=== PATIENT | male | born 1955 | race African-American/Black ===

== ENCOUNTER 2021-04-24 16:18 | Inpatient (IN) | payer MEDICARE, OTHER, SELFPAY ==
[2021-04-24] VITALS (7 sets, daily range): BP systolic 109–170; BP diastolic 71–110; PULSE 89–112; RESP 17–38; TEMP 36.2–39.4; O2SAT 96–100; BMI 18.3
--- NOTE | ~2021-04-24 | US_ITS ---
EXAMINATION: US venous doppler [facility] DATE: 04/25/2021 09:33 INDICATION: Acute pulmonary emboli. TECHNIQUE: Grayscale ultrasound images without and with compression and Doppler ultrasound images of the bilateral lower extremity veins were obtained. COMPARISON: None. FINDINGS: The visualized portions of right common femoral vein, profunda (deep) femoral vein, and greater saphe nous vein outflow are patent. There is thrombus in right femoral vein, popliteal vein, and posterior tibial, peroneal, and gastrocnemius veins. There is thrombus in left common femoral vein, profunda femoral vein, femoral vein, popliteal vein, a peroneal vein, and greater saphenous vein. IMPRESSION: 1. Bilateral acute deep vein thrombosis. Reviewed, dictated and finalized at location B. OR MACHINE PASTER
--- NOTE | ~2021-04-24 | XR_ITS ---
XR chest 1V portable DATE: 04/24/2021 16:53 INDICATION: Nonproductive cough. Possible Covid infection. History of hypertension. TECHNIQUE: Portable AP views on 04/24/2021 at 1646/1647 hours COMPARISON: None FINDINGS: Heart size is normal. Mild aortic unfolding. No hilar or mediastinal enlargement. Minimal infiltrate or atelectasis at the lung bases. The lungs otherwise appear clear. No pleural eff usion or pulmonary vascular congestion or pneumothorax. IMPRESSION: Minimal infiltrate or atelectasis at the lung bases Reviewed, dictated and finalized at location J. R ENGINEER
--- NOTE | ~2021-04-24 | CT_ITS ---
EXAMINATION: CTA brain carotid DATE: 04/25/2021 05:14 INDICATION: Left facial weakness. TECHNIQUE: Computed tomographic angiography (CTA) of the head was performed with 100 mL Omnipaque-350 intravenous contrast. CTA of the neck was performed with intravenous contrast. Automated exposure co ntrol and iterative reconstruction technique were employed. The dose-length product was 1132.47 mGy-c m. Maximum intensity projection and volume rendered 3D-reconstructions were created by the technRavello Systemsi st on a separate workstation. COMPARISON: Head CT 04/25/2021 FINDINGS: HEAD CTA: There is diffuse brain volume loss. There are old infarcts in the right basal ganglia. Ther e are scattered areas of low attenuation in the cerebral white matter. The ventricles are normal in s ize to the degree of diffuse brain volume loss. There are old blowout fractures of the medial wall an d floor of left orbit. There is complete opacification of left maxillary sinus. There is mild mucosal thickening in the ethmoid sinuses. There is a trace left mastoid effusion. Right vertebral artery is dominant. There is no significant stenosis of basilar artery or the posterior cerebral arteries. The re is moderate stenosis of intracranial right internal carotid artery. There is no significant stenos is of the anterior or middle cerebral arteries. Anterior communicating artery is normal. The posterio r communicating arteries are normal. There is no aneurysm. NECK CTA: There is mild emphysema. There are no pathologically enlarged lymph nodes. There is a signi ficant stenosis of the vertebral arteries. There is plaque in the proximal internal carotid arteries. There is 0% stenosis of the proximal right internal carotid artery relative to normal distal artery lumen diameter (NASCET criteria). There is 0% stenosis of the proximal left internal carotid artery r elative to normal distal artery lumen diameter. There is severe cervical spondylosis. IMPRESSION: 1. 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 2. Mild nonspecific cerebral white matter disease, which likely represents chronic small vessel ische lj disease. 3. Moderate stenosis of intracranial right internal carotid artery. 4. 0% stenosis of the proximal internal carotid arteries relative to normal distal artery lumen diame ters (NASCET criteria). Reviewed, dictated and finalized at location B. LBENZENE CONVERTER OPERATOR IMPRESSION: 1. 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 2. Mild nonspecific cerebral white matter disease, which likely represents bilingual social worker adrian small vessel ischemic disease. 3. Moderate stenosis of intracranial right internal carotid artery. 4. 0% stenosis of the proximal internal carotid arteries relative to normal dis rafael artery lumen diameters (NASCET criteria).
--- NOTE | ~2021-04-24 | CT_ITS ---
EXAMINATION: CTA chest PE abdomen pel DATE: 04/24/2021 18:22 INDICATION: Cough, weakness, shortness of breath TECHNIQUE: Computed tomography angiography (CTA) of the chest was performed with 100 mL Omnipaque-350 intravenous contrast timed to evaluate the pulmonary arteries. Coronal maximum intensity projection 3D-reconstructions were created by the technologist. Automated exposure control and iterative reconst ruction technique were employed. Exam dose: 499.21 mGy-cm total exam DLP. COMPARISON: 04/24/2021 portable AP chest FINDINGS: There is diagnostic contrast enhancement of the pulmonary arteries and prominent amount of thrombus within the main right pulmonary artery and saddle embolus involving right upper and lower lo be. Heart size is normal. No pericardial or pleural effusion. No thoracic aortic aneurysm or dissection i s evident. No hilar or mediastinal mass lesion or adenopathy. There is prominent discoid atelectasis and/or scarring in the lower lobes. Moderate moderate emphysem atous changes are suggested. Approximately 3.5 x 4.7 cm low-attenuation mass of the pancreatic head and uncinate process area, kebede sing suspicion of possible pancreatic carcinoma. Bilateral rib fractures. No suspicious osteolytic or osteoblastic lesions are noted. IMPRESSION: Main right pulmonary artery and right saddle pulmonary embolus involving right upper and lower lobes Prominent discoid atelectasis and/or scarring in the lower lobes and mild to moderate emphysematous s uggested 3.5 x 4.7 cm low-attenuation mass in the pancreatic head and uncinate process; pancreatic cancers are n't excluded Reviewed, dictated and finalized at Location A. Reviewed, dictated and finalized at location J. CTOR TECHNICAL IMPRESSION: Main right pulmonary artery and right saddle pulmonary embolus inv olving right upper and lower lobes Prominent discoid atelectasis and/or scarring in the lower lobes and mild to mo derate emphysematous suggested 3.5 x 4.7 cm low-attenuation mass in the pancreatic head and uncinate process; pancreatic cancers aren't excluded
--- NOTE | ~2021-04-24 | CT_ITS ---
EXAMINATION: CT brain wo con DATE: 04/25/2021 01:16 INDICATION: Left facial weakness. TECHNIQUE: Computed tomography (CT) of the head was performed without intravenous contrast. The mA wa s adjusted according to patient size. Iterative reconstruction technique was employed. The dose-lengt h product was 681.00 mGy-cm. COMPARISON: None FINDINGS: There is diffuse brain volume loss. There are old infarcts involving the right basal gangli a. There are scattered areas of low attenuation in the cerebral white matter. There is no intracrania l hemorrhage, acute infarction, or abnormal intracranial mass lesion. The ventricles are normal in si ze for the degree of brain volume loss. There are old blowout fractures of the medial wall and floor of left orbit. There is complete opacification of left maxillary sinus. There is mild mucosal thicken ing in the ethmoid sinuses. There is a trace left mastoid effusion. IMPRESSION: 1. 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 2. Mild nonspecific cerebral white matter disease, which likely represents chronic small vessel ische lj disease. Reviewed, dictated and finalized at location B. HELPER IMPRESSION: 1. 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 2. Mild nonspecific cerebral white matter disease, which likely represents bowling alley manager adrian small vessel ischemic disease.
--- NOTE | ~2021-04-24 | US_ITS ---
EXAMINATION: US abdomen limited DATE: 04/25/2021 09:33 INDICATION: Pancreatic mass. TECHNIQUE: Multiple grayscale and Doppler ultrasound images of the abdomen were obtained. COMPARISON: CT abdomen and pelvis 04/24/2021 FINDINGS: There is a 4.9 x 4.1 x 4.3 cm hypoechoic and anechoic mass without internal vascular flow i n head of the pancreas. The pancreatic duct is normal in caliber in the body of the pancreas. The CT demonstrates calcifications in the head of the pancreas. The liver is normal without focal lesion. No liver surface nodularity. The gallbladder is contracted. No gallstones. Gallbladder wall thickening is noted. There is normal flow in main portal vein. The common duct is dilated to 9 mm. There are cys ts in right kidney measuring up to 2.9 cm. IMPRESSION: 1. 4.9 cm pancreatic head mass, most likely chronic pancreatitis with walled-off necrosis. Comparison with outside imaging is recommended to exclude malignancy. Reviewed, dictated and finalized at location B. VERY TABLE OPERATOR IMPRESSION: 1. 4.9 cm pancreatic head mass, most likely chronic pancreatitis with walled-of f necrosis. Comparison with outside imaging is recommended to exclude malignanc y.
--- NOTE | 2021-04-24 16:24 | PC.NURSE ---
pt denies receiving covid vaccine
--- NOTE | 2021-04-24 16:29 | ECG_ITS ---
Measurements Intervals [place] Rate: 105 P: 65 MN: 168 QRS: 55 QRSD: 86 T: 65 QT: 404 QTc: 536 Interpretive Statements SINUS TACHYCARDIA BASELINE ARTIFACT- II, III, V3-V6 ABNORMAL ECG Electronically Signed On 04-24-2021 20:26:45 NET SORTER by Wade Blair D.O.
--- NOTE | 2021-04-24 16:37 | ED.WEAKNESS ---
HPI - Weakness General Chief complaint: Weakness Stated complaint: LETHARGY Time Seen by Provider: 04/24/21 16:20 Source: patient and EMS Mode of arrival: EMS Limitations: other (poor historian) History of Present Illness HPI Narrative: This is a 65 year old male with history of alcohol abuse, hypertension who presents from home for evaluation of weakness per EMS. Patient states he has been brought to ER because he has had productive cough for 2 weeks. He denies associated chest pain, shortness of breath, nausea, vomiting, abdominal pain or weakness. He is oriented to person and ago. Per EMS, patient was diverted from [place] because he possibly had covid. Patient admits to drinking a pint a day but he states he has not drank in at least 2 days. He is unable to state his last drink. He denies alcohol withdrawal in the past but his paperwork reports alcohol withdrawal in his diagnosis. His daughter states patient recently moved in with her. She states he has been in and out of hospital over past 3 years. He was seen for first time at [place] clinic today in 3 years. She reports he went for follow up , but the clinic called EMS. They called [facility] because they were concerned he had covid pneumonia. She states patient is at his baseline mental status. Related Data Home Medications Medication Instructions Recorded Confirmed acamprosate 333 mg PO TID 04/24/21 04/25/21 diltiazem HCl 120 mg PO DAILY 04/24/21 04/25/21 folic acid 1 mg PO DAILY 04/24/21 04/25/21 multivitamin,hb-[id number] 1 tablet PO DAILY 04/24/21 04/25/21 [Complete Multivitamin] rosuvastatin 40 mg PO QPM 04/24/21 04/25/21 spironolactone 25 mg PO DAILY 04/24/21 04/25/21 thiamine HCl (vitamin B1) 100 mg PO DAILY 04/24/21 04/25/21 tramadol 50 mg PO Q6H PRN 04/24/21 04/25/21 Allergies Allergy/AdvReac Type Severity Reaction Status Date / Time No Known Allergies Allergy Verified 04/24/21 16:20 Review of Systems Review of Systems: All systems reviewed & are unremarkable except as noted in HPI and below PMFSH Past Medical History Medical History (Updated 04/25/21 @ 01:23 by Clementine Jimneez MD) Alcohol abuse DM2 (diabetes mellitus, type 2) Hyperlipidemia Hypertension Surgical History Surgical History (Updated 04/24/21 @ 22:33 by Amelia Nicholas NP) No pertinent past surgical history Family History Family History (Updated 04/24/21 @ 22:33 by Amelia Nicholas NP) Unknown Unknown family medical history Social History Social History (Updated 04/24/21 @ 22:35 by Amelia Nicholas NP) Social History: Initially the patient told me that he quit drinking 2 weeks ago however was noted that his last drink was 2 days ago. He does have a history of alcoholism. Even though the patient served in the [employer] he stated that he does not always go to the [facility]. The patient is and has 6 children. The patient worked in transport. Patient continues to smoke half pack a cigarettes a day. It is noted that the patient typically drinks a pt of liquor a day. The patient lives with his daughter Melva who is the durable power insurance attorney for healthcare. Code status full code Alcohol intake: current Alcohol use details: pint a day Exam Const: General: no acute distress and alert Other: oriented to x 2 HENMT: Head: normocephalic and atraumatic Face and sinus: normal facial exam, sinuses nontender and face symmetric Mouth: Yes Normal oral and palatal mucosa present, Yes lip normal, Yes oropharynx normal and Yes moist mucous membranes Throat: posterior oropharynx normal, tonsils normal and uvula midline Eyes: Pupils: Equal, round and reactive pupils present EOM: EOMs intact bilaterally Chest: Chest palpation & inspection: normal inspection of the chest Resp: Effort & Inspection: normal respiratory effort and no retractions Auscultation: clear to auscultation bilaterally Cardio: Rate: regular rate Rhythm: reg
[2021-04-24 16:43] LABS: Base Excess ABG -3.2 mEq/l (+/-2.0); Carboxyhemoglobin 0.1 % THb (0-2.0); Device ROOM AIR; Fractional Inspired Oxygen 21 %; HCO3 ABG 20.5 mEq/l (22.0-26.0); Methemoglobin ABG 0.2 %THb (0-1.5); Modified Allen's Test Pass; Oxygen Content ABG 15.8 %vol (16.0-22.0); Oxygen Saturation ABG 94.8 % (95.0-100.0); Oxyhemoglobin 92.5 % THb (90.0-100.0); PCO2 ABG 32.3 mmHg (35.0-45.0); PO2 ABG 71.1 mmHg (80.0-100.0); PO2 FiO2 Ratio Arterial Blood 3.39 %; Reduced Hemoglobin 7.2 %THb (0-5.0); Site Drawn LEFT RADIAL; Total Hemoglobin 12.1 g/dL (12.0-18.0)
[2021-04-24 17:03] LABS: Basophils Percent Auto 0.2 % (0.2-1.2); Hematocrit 35.3 % (42.0-52.0); Hemoglobin 12.4 g/dL (14.0-18.0); Immature Granulocyte Absolute 0.19 K/mm3 (0.00-0.031); Immature Granulocyte Percent A 1.1 % (0-0.5); Lymphocytes Absolute Auto 0.44 K/mm3 (0.9-3.2); Lymphocytes Percent Auto 2.5 % (18.3-44.2); Mean Corpuscular HGB Conc 35.1 g/dl (32-36); Mean Corpuscular Hemoglobin 30.9 pg (26-34); Mean Platelet Volume 10.6 fl (7.4-10.4); Monocytes Absolute Auto 0.5 K/mm3 (0.1-0.6); Monocytes Percent Auto 2.7 % (2.6-8.5); Neutrophils Absolute Auto 16.6 K/mm3 (1.3-6.7); Neutrophils Percent Auto 93.5 % (45.5-73.1); Platelet Count Result 272 k/mm3 (150-375); Red Blood Count 4.01 M/mm3 (4.6-6.20); Red Cell Distribution Width 15.1 % (11.5-14.5); White Blood Count 17.7 K/mm3 (4.5-10.0)
[2021-04-24 17:13] LABS: Partial Thromboplastin Time 40.5 SECONDS (22.3-36.8)
[2021-04-24 17:16] LABS: Alanine Aminotransferase 27 U/L (4-50); Albumin Level 3.8 g/dL (3.5-5.1); Alkaline Phosphatase 129 U/L (38-126); Anion Gap 20 mmol/L (8-16); Aspartate Amino Transferase 67 U/L (17-59); Bilirubin,Total 1.1 mg/dL (0.2-1.3); Blood Urea Nitrogen 20 mg/dL (9-20); Calcium 9.4 mg/dL (8.4-10.2); Carbon Dioxide 20 mmol/L (22-30); Chloride 91 mmol/L (98-107); Estimated CRCL calculation 52 ml/min; Estimated Glomerular Filt Rate > 60; Glucose 561 mg/dL (65-110); Lactic Acid Reflex 6.3 mmol/L (0.7-2.1); Potassium 3.1 mmol/L (3.4-5.0); Sodium 131 mmol/L (137-145)
[2021-04-24 17:18] LABS: INR 1.1
[2021-04-24 17:25] LABS: Ethanol < 10 mg/dL (<10)
[2021-04-24] MEDS: SODIUM CHLORIDE 0.9% IV 1,000 ML 999 ML IV CONT ×2 (17:25→18:43)
[2021-04-24 18:28] LABS: Beta-Hydroxybutyrate/Acetoacetate 0.57 mmol/L (0.02-0.27)
[2021-04-24 18:38] LABS: SARS-CoV-2 RNA PCR Positive
[2021-04-24] MEDS: POTASSIUM CHLORIDE 20 MEQ TABLET 40 MEQ PO (18:42)
[2021-04-24 18:56] LABS: Lipase 76 U/L (23-300)
[2021-04-24 19:09] LABS: NT Pro B Type Natriuretic Pept 545 pg/mL (5-100); Troponin I < 0.012 ng/mL (0.000-0.034)
[2021-04-24] MEDS: POTASSIUM CHLORIDE INJ 40 MEQ in SODIUM CHLORIDE 0.9% IV 500 ML 130 MEQ IVPB (19:56)
[2021-04-24 20:01] LABS: Reflex Lactic Acid Yes or No Add Lactic
[2021-04-24 20:02] LABS: Glucose Point of Care 463 mg/dl (65-105)
--- NOTE | 2021-04-24 20:02 | PC.NURSE ---
pt informed that urine specimen is needed or a straight cath will need to be performed
[2021-04-24 20:16] LABS: Ammonia < 9 umol/L (9-30)
--- NOTE | 2021-04-24 20:21 | PM.IMHP ---
H&P: HPI History of Present Illness Date/Time: 04/24/21 20:21 this is a 65-year-old male patient who has a history of alcohol abuse, and hypertension. The patient lives with his daughter. Although he is the [facility] he typically does not go to the [place] and typically goes to [facility]. The patient was brought to [place] ER as the patient had been suspected to have COVID. The [facility] stated that they did not have any isolation beds for possible COVID patient therefore the patient was diverted to [facility] instead of [facility]. The patient has been coughing for 2 weeks. He denies any COVID vaccines. The patient has a history of alcoholism drinking up to a pt of whiskey a day but stated that he has not drink in 2 days. Patient's white count is 17.7. H&H is 12.4 and 35.3. Patient's ABGs pH is 7.420. CO2 32.3. PO2 71.1. Patient was started on oxygen at 2 L per nasal cannula. His sodium was 132, potassium 3.3. Initially patient's blood glucose is 561 and is now down to 358. Lactic was 6.3 and is down to 3.3 now. AST 67 alkaline phosphatase 129. Troponin negative. Patient was found to be positive for COVID-19. Patient's chest abdominal pelvis CTA was read as main right pulmonary artery and right saddle pulmonary embolism involving right upper and lower lobes. Prominent discoid atelectasis and/or scarring in the lower lobes and mild to moderate emphysematous suggested 3.5 x 4.7 cm low-attenuation mass in the pancreatic head and uncinate process, pancreatic cancers are not excluded. The patient's beta hydroxy butyrate was 0.57. The patient's anion gap was initially 20 and is now 13. Initially the ER physician called the greens laborer who agreed to place the patient in ICU. Patient's A1c was noted to be 6.7. The patient had been given 2 L of IV fluids, oral potassium, and Lovenox. The patient is being admitted to observation status on date of service of 04/24/2021. Chief Complaint: Shortness of breath Review of Systems Review of Systems: All systems reviewed & are unremarkable except as noted in HPI and below Constitutional: Constitutional: Reports as per HPI and Reports no additional constitutional complaints Eyes: Eyes: Reports as per HPI and Reports no additional eye complaints ENT: Reports system reviewed and no additional complaints, except as documented and Reports Normal hearing present Cardiovascular: Cardiovascular: Reports no additional cardiovascular complaints Respiratory: Respiratory: Reports no additional respiratory complaints and Reports no additional respiratory complaints Gastrointestinal: Gastrointestinal: Reports as per HPI and Reports no additional gastrointestinal complaints Musculoskeletal: Musculoskeletal: Reports no additional musculoskeletal complaints Integumentary/Breasts: Skin/Breast: Reports system reviewed and no additional complaints, except as docu and Reports as per HPI Neurologic: Reports system reviewed and no additional complaints, except as documented, Reports as per HPI and Reports Normal hearing present Psychiatric: Psychiatric: Reports no additional psychiatric complaints and Reports as per HPI Endocrine: Endocrine: Reports no additional endocrine complaints Hematologic/Lymphatic: Hematologic/Lymphatic: Reports no additional hematologic/lymphatic complaints Allergic/Immunologic: Allergic/Immunologic: Reports no additional allergic/immunologic complaints [facility] Past Medical History Medical History (Updated 04/24/21 @ 22:49 by Amelia Nicholas NP) Alcohol abuse DM2 (diabetes mellitus, type 2) Hyperlipidemia Hypertension Surgical History Surgical History (Updated 04/24/21 @ 22:33 by Amelia Nicholas NP) No pertinent past surgical history Family History Family History (Updated 04/24/21 @ 22:33 by Amelia Nicholas NP) Unknown Unknown family medical history Social History Social History (Updated 04/24/21 @ 22:35 by Amelia Berrios
[2021-04-24 20:58] LABS: Anion Gap 13 mmol/L (8-16); Blood Urea Nitrogen 18 mg/dL (9-20); Calcium 8.5 mg/dL (8.4-10.2); Carbon Dioxide 20 mmol/L (22-30); Chloride 99 mmol/L (98-107); Estimated CRCL calculation 68 ml/min; Estimated Glomerular Filt Rate > 60; Glucose 471 mg/dL (65-110); Lactic Acid 3.3 mmol/L (0.7-2.1); Phosphorus 4.8 mg/dL (2.5-4.5); Potassium 3.3 mmol/L (3.4-5.0); Sodium 132 mmol/L (137-145)
[2021-04-24 21:02] LABS: Hemoglobin A1C 6.7 % (<5.7)
[2021-04-24] MEDS: ENOXAPARIN 80 MG/0.8 ML SYRINGE 70 MG SUB-Q (21:19)
[2021-04-24] MEDS: SODIUM CHLORIDE 0.9% IV 1,000 ML 150 ML IV CONT (21:22)
[2021-04-24] MEDS: INSULIN HUMAN REGULAR (*BKC) 100 UNITS in SODIUM CHLORIDE 0.9% IV 99 ML 10 UNITS IV CONT (21:22)
[2021-04-24 22:12] LABS: Glucose Point of Care 358 mg/dl (65-105)
[2021-04-24 23:03] LABS: Alanine Aminotransferase 25 U/L (4-50); Estimated CRCL calculation 62 ml/min; Estimated Glomerular Filt Rate > 60
[2021-04-24 23:06] LABS: INR 1.5; Prothrombin Time 17.5 Seconds (11.1-14.7)
[2021-04-25] VITALS (21 sets, daily range): BP systolic 95–142; BP diastolic 59–111; PULSE 78–145; RESP 18–40; TEMP 36.4–40.4; O2SAT 10–100
--- NOTE | 2021-04-25 | ECHO_ITS ---
Patient Info Name: Tirso Baum Age: 65 years : 1955 Gender: Male Ht: 67 in Wt: 154 lbs BSA: 1.82 m2 HR: 88 bpm Technical Quality: Good Exam Date: 04/25/2021 8:51 AM Exam Location: [facility] Patient Status: Inpatient Admit Date: 04/25/2021 Staff Ordering Physician: Amelia Nicholas NP Design Intern: Austin Hannah RDCS, RT Attending Provider: Rosalinda Martínez DO Referring Physician: Yu LUTHER; Exam Type: CA echo doppler color flow Study Info Indications - PE Complete two-dimensional, color flow and Doppler transthoracic echocardiogram is performed. Summary 1. Complete two-dimensional, color flow and Doppler transthoracic echocardiogram is performed. 2. Left ventricular chamber dimension is normal. 3. Left ventricular systolic function is normal, estimated at 55-60%. 4. The left ventricular diastolic function is grade I diastolic dysfunction. 5. E/e' 8 is minimally elevated. 6. There is mild mitral valve regurgitation. Left Ventricle E/e' 8 is minimally elevated. Left ventricular chamber dimension is normal. Left ventricular systolic function is normal, estimated at 55-60%. The left ventricular diastolic function is grade I diastolic dysfunction. Right Ventricle Right ventricular systolic function is normal and with normal TAPSE 1.7 cm. Right ventricular chamber dimension is normal. Left Atria Left atrial chamber dimension is normal. Right Atria Right atrial chamber dimension is normal. Aortic Valve The aortic valve is trileaflet. There is no aortic valve stenosis. There is no aortic valve regurgitation. Pulmonic Valve There is no pulmonic regurgitation. Mitral Valve There is no mitral valve stenosis. There is mild mitral valve regurgitation. Tricuspid Valve There is no tricuspid valve regurgitation. Pericardium/Pleural There is no pericardial effusion. Inferior Vena Cava Dilated inferior vena cava with >50% collapse upon inspiration consistent with normal right atrial pressure, 5 mmHg. Aorta The aortic root size at the sinus of Valsalva is normal. Left Ventricular Outflow Tract Name Value Normal LVOT 2D LVOT Diameter 2.0 cm LVOT Doppler LVOT Peak Gradient 2 mmHg LVOT Mean Gradient 2 mmHg LVOT VTI 16 cm LVOT VTI/AV VTI Ratio 0.8 LVOT Stroke Volume 49 ml LVOT CO 4.5 l/min LVOT CI 2.5 l/min/m2 Mitral Valve Name Value Normal MV Doppler MV Decel Lassen 281 cm/s2 MV PHT 74 ms MV Area (PHT) 3.0 cm2 4.0-5.0 MV Regurgitation Doppler
[2021-04-25] MEDS: REMDESIVIR 200 MG/NS 250 ML 200 MG/250 ML BAG 250 MG IVPB (00:21)
[2021-04-25] MEDS: KCL 20 MEQ/D5/0.45% SOD CHL 1,000 ML 150 ML IV CONT (00:33)
[2021-04-25] MEDS: DEXTROSE 50% 25 GM/50 ML SYRINGE IV PUSH ×3 (00:33→04:22)
[2021-04-25 00:42] LABS: Glucose Point of Care 79 mg/dl (65-105)
[2021-04-25 00:43] LABS: Glucose Point of Care 74 mg/dl (65-105)
[2021-04-25 00:43] LABS: Glucose Point of Care 47 mg/dl (65-105)
[2021-04-25 00:51] LABS: Add Urine Microscopic? YES; Appearance Urine Cloudy (Clear); Bacteria Urine Trace /hpf; Bilirubin Urine Negative (Negative); Blood Urine 3+ (Negative); Budding Yeast Urine Present /hpf; Color Urine Yellow (Yellow); Glucose Urine UA Negative (Negative); Ketones Urine Negative (Negative); Leukocyte Esterase Ur 2+ LEU/UL (Negative); Nitrate Urine Negative (Negative); Protein Urine 1+ mg/dL (Negative); RBC Urine 21-50 /hpf (0-2); Specific Grav Ur 1.023 (1.001-1.035); Squamous Epithelial Cell Urine Rare /hpf (Few); WBC Clumps Urine Present /HPF; WBC Urine >75 /hpf
[2021-04-25 00:54] LABS: Anion Gap 8 mmol/L (8-16); Blood Urea Nitrogen 15 mg/dL (9-20); Calcium 8.1 mg/dL (8.4-10.2); Carbon Dioxide 20 mmol/L (22-30); Chloride 109 mmol/L (98-107); Estimated CRCL calculation 68 ml/min; Estimated Glomerular Filt Rate > 60; Glucose 197 mg/dL (65-110); Potassium 3.3 mmol/L (3.4-5.0); Sodium 137 mmol/L (137-145)
[2021-04-25 01:25] LABS: Glucose Point of Care 104 mg/dl (65-105)
[2021-04-25 03:13] LABS: Glucose Point of Care 46 mg/dl (65-105)
[2021-04-25] MEDS: ASPIRIN 300 MG SUPPOSITORY RECTAL (04:22)
[2021-04-25 04:29] LABS: Glucose Point of Care 35 mg/dl (65-105)
[2021-04-25 04:55] LABS: Basophils Absolute Auto 0.1 K/mm3 (0.0-0.1); Basophils Percent Auto 0.3 % (0.2-1.2); Hematocrit 36.3 % (42.0-52.0); Hemoglobin 12.3 g/dL (14.0-18.0); Lymphocytes Absolute Auto 0.57 K/mm3 (0.9-3.2); Lymphocytes Percent Auto 2.8 % (18.3-44.2); Mean Corpuscular HGB Conc 33.9 g/dl (32-36); Mean Corpuscular Hemoglobin 30.6 pg (26-34); Mean Corpuscular Volume 90.3 fl (80-100); Mean Platelet Volume 10.2 fl (7.4-10.4); Monocytes Absolute Auto 0.4 K/mm3 (0.1-0.6); Monocytes Percent Auto 1.8 % (2.6-8.5); Neutrophils Absolute Auto 19.2 K/mm3 (1.3-6.7); Neutrophils Percent Auto 94.1 % (45.5-73.1); Platelet Count Result 275 k/mm3 (150-375); Red Blood Count 4.02 M/mm3 (4.6-6.20); Red Cell Distribution Width 15.4 % (11.5-14.5); White Blood Count 20.4 K/mm3 (4.5-10.0)
[2021-04-25 05:06] LABS: INR 1.2; Prothrombin Time 15.3 Seconds (11.1-14.7)
[2021-04-25 05:07] LABS: Partial Thromboplastin Time 39.5 SECONDS (22.3-36.8)
[2021-04-25 05:17] LABS: Alanine Aminotransferase 25 U/L (4-50); Albumin Level 3.5 g/dL (3.5-5.1); Alkaline Phosphatase 129 U/L (38-126); Anion Gap 9 mmol/L (8-16); Aspartate Amino Transferase 39 U/L (17-59); Bilirubin,Total 0.8 mg/dL (0.2-1.3); Blood Urea Nitrogen 13 mg/dL (9-20); Calcium 9.4 mg/dL (8.4-10.2); Carbon Dioxide 23 mmol/L (22-30); Chloride 112 mmol/L (98-107); Estimated CRCL calculation 62 ml/min; Estimated Glomerular Filt Rate > 60; Glucose 31 mg/dL (65-110); Lactate Dehydrogenase 521 U/L (313-618); Potassium 3.3 mmol/L (3.4-5.0); Sodium 144 mmol/L (137-145)
[2021-04-25 06:10] LABS: CRP 35.8 mg/dL (<1.0)
[2021-04-25 06:26] LABS: Glucose Point of Care 107 mg/dl (65-105)
[2021-04-25 06:56] LABS: Thyroid Stimulating Hormone Reflex 0.592 uIU/mL (0.465-4.68)
[2021-04-25] MEDS: FOLIC ACID 1 MG/0.2 ML INJ IV PUSH (07:46)
[2021-04-25] MEDS: THIAMINE HCL 200 MG/2 ML VIAL 100 MG IV PUSH (07:46)
[2021-04-25] MEDS: ENOXAPARIN 80 MG/0.8 ML SYRINGE 70 MG SUB-Q ×2 (07:46→21:00)
[2021-04-25 08:23] LABS: Glucose Point of Care 144 mg/dl (65-105)
[2021-04-25 08:36] LABS: Anion Gap 8 mmol/L (8-16); Blood Urea Nitrogen 12 mg/dL (9-20); Calcium 8.8 mg/dL (8.4-10.2); Carbon Dioxide 21 mmol/L (22-30); Chloride 111 mmol/L (98-107); Estimated CRCL calculation 55 ml/min; Estimated Glomerular Filt Rate > 60; Glucose 122 mg/dL (65-110); Sodium 140 mmol/L (137-145)
[2021-04-25 08:36] LABS: Glucose Point of Care 108 mg/dl (65-105)
--- NOTE | 2021-04-25 08:41 | WPDCNINT ---
Assessment and Plan Assessment and plan (1) COVID: Code(s): U07.1 - COVID-19 Status: Acute Assessment and Plan: Patient tested positive for COVID-19 but is currently on room air with saturation 95% when I was in the room. CT chest did not show any infiltrates suggestive of pneumonia He has been started on Remdesivir Dexamethasone not indicated at this time (2) Pulmonary embolism: Code(s): I26.99 - Other pulmonary embolism without acute cor pulmonale Status: Acute Assessment and Plan: Check lower extremity Dopplers Lovenox subQ Check echocardiogram Hemodynamically stable (3) Pancreatic mass: Code(s): K86.89 - Other specified diseases of pancreas Status: Acute Assessment and Plan: Suspected of pancreatic cancer Consult GI MRI once metabolic derangements improved (4) Alcohol abuse: Code(s): F10.10 - Alcohol abuse, uncomplicated Status: Chronic Assessment and Plan: Thiamine folic acid Watch for signs of withdrawal (5) DKA (diabetic ketoacidosis): Code(s): E11.10 - Type 2 diabetes mellitus with ketoacidosis without coma Status: Acute Assessment and Plan: Patient wished he presented with DKA and was given IV fluid bolus and started on IV fluid maintenance. He was also started on insulin infusion which is now off as patient has become hypoglycemic His anion gap had closed (6) Hypoglycemia: Code(s): E16.2 - Hypoglycemia, unspecified Status: Acute Assessment and Plan: Patient initially presented with hyperglycemia and DKA and was started on insulin infusion and overnight became hypoglycemic Continues dextrose infusion and and slowly wean it off Changes rate to 75 Continue blood sugar monitoring q.2 hours (7) Hypertension: Code(s): I10 - Essential (primary) hypertension Status: Chronic Assessment and Plan: Resume Cardizem CD as allowed by blood pressure Currently in controlled range (8) Hyperlipidemia: Code(s): E78.5 - Hyperlipidemia, unspecified Status: Chronic Assessment and Plan: Crestnettie (9) Encephalopathy: Code(s): G93.40 - Encephalopathy, unspecified Status: Acute Assessment and Plan: Appears to be multifactorial as patient has sepsis and was also had episodes of hypoglycemia ? Unwitnessed seizure from hypoglycemia with postictal state CVA was suspected and patient had CT and CTA of head and neck which showed old infarct Avoid sedatives, treat sepsis and metabolic derangements Normal ammonia and TSH Continue aspirin IMPRESSION: 1. 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 2. Mild nonspecific cerebral white matter disease, which likely represents chronic small vessel ischemic disease. 3. Moderate stenosis of intracranial right internal carotid artery. 4. 0% stenosis of the proximal internal carotid arteries relative to normal distal artery lumen diameters (NASCET criteria). Head CT IMPRESSION: 1. 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 2. Mild nonspecific cerebral white matter disease, which likely represents chronic small vessel ischemic disease. (10) Electrolyte abnormality: Code(s): E87.8 - Other disorders of electrolyte and fluid balance, not elsewhere classified Status: Acute Assessment and Plan: Replace low potassium (11) Sepsis: Code(s): A41.9 - Sepsis, unspecified organism Status: Acute Assessment and Plan: Secondary to UTI Patient given IV fluid bolus and is on IV fluids Lactic acid is improving He has not required vasopressors Cultures blood and urine sent IV Rocephin to be continued (12) Renal mass: Code(s): N28.89 - Other specified disorders of kidney and ureter Status: Acute Assessment and Plan: CT showed bilateral renal masses MRI once patient is a little bit more stable and and acute metabolic derangements are normalized Additional Plan DVT prophylaxis -Lovenox subQ N
[2021-04-25 09:20] LABS: Glucose Point of Care 151 mg/dl (65-105)
[2021-04-25] MEDS: POTASSIUM CHLORIDE INJ 40 MEQ in SODIUM CHLORIDE 0.9% IV 500 ML 130 MEQ IVPB (10:13)
[2021-04-25 10:33] LABS: Glucose Point of Care 210 mg/dl (65-105)
[2021-04-25] MEDS: ASPIRIN 325 MG ENTERIC TABLET PO (11:24)
[2021-04-25] MEDS: ROSUVASTATIN 10 MG TABLET 40 MG PO (11:24)
[2021-04-25 11:51] LABS: Glucose Point of Care 205 mg/dl (65-105)
[2021-04-25] MEDS: KCL 20 MEQ/0.45% NS 1,000 ML 100 ML IV CONT (12:25)
--- NOTE | 2021-04-25 12:36 | WPDGICN ---
Assessment and Plan Assessment and plan (1) Pancreatic mass: Code(s): K86.89 - Other specified diseases of pancreas Status: Acute Assessment and Plan: I think it is history favors chronic pancreatitis more than malignancy. I will obtain a CA 19-9, though it will not be is reliable with acute pancreatitis because that can elevate the test. Ultimately he will need EUS and biopsy in [place]. MRCP can be done here. He also has masses in both kidneys (2) Alcohol abuse: Code(s): F10.10 - Alcohol abuse, uncomplicated Status: Chronic Assessment and Plan: he admits to alcohol abuse but denies previous hospitalizations due to alcohol related problems. CT shows rib fractures suggesting he may have been following (3) COVID: Code(s): U07.1 - COVID-19 Status: Acute Assessment and Plan: This was diagnosed 2 or 3 days ago when he was seen in the clinic at the [facility] (4) Sepsis: Code(s): A41.9 - Sepsis, unspecified organism Status: Acute Assessment and Plan: etiology unknown. He has no findings on chest x-ray that would imply pneumonia GI Consult Note Consult date/time: 04/25/21 12:36 HPI: Tirso Baum is a 65 year old male who was admitted yesterday with complaints of weakness and cough. He stated that he had been diverted from the a because he thought he had COVID. He has been found to have elevated liver enzymes and. CT scan shows pancreatic mass effect particularly in the head of the pancreas and also changes consistent with chronic pancreatitis. He denies having had pancreatitis previously. He admits to drinking a pt of whiskey each day. He denies having had prior hospitalizations for alcohol withdrawal. He is somewhat confused, he thought he was admitted 3 days ago. He appears sedated as well. He cannot tell me whether he has been losing weight. Denies vomiting. He had 1st denied abdominal pain but was tender on palpation in the upper abdomen. Review of Systems Review of Systems: All systems reviewed & are unremarkable except as noted in HPI and below PMFSH Past Medical History Medical History Alcohol abuse DM2 (diabetes mellitus, type 2) Hyperlipidemia Hypertension Surgical History Surgical History No pertinent past surgical history Family History Family History Unknown Unknown family medical history Social History Social History Social History: Initially the patient told me that he quit drinking 2 weeks ago however was noted that his last drink was 2 days ago. He does have a history of alcoholism. Even though the patient served in the [employer] he stated that he does not always go to the [facility]. The patient is and has 6 children. The patient worked in transport. Patient continues to smoke half pack a cigarettes a day. It is noted that the patient typically drinks a pt of liquor a day. The patient lives with his daughter Melva who is the durable power crochet machine operator for healthcare. Code status full code Smoking status: Unknown if ever smoked Alcohol intake: current Drinks per week: 10 Alcohol use details: pint a day Substance use: current Substance use type: marijuana Spiritual care concerns: No Meds Home Medications and Allergies Home Medications Medication Instructions Recorded Confirmed Type acamprosate 333 mg PO TID 04/24/21 04/25/21 History diltiazem HCl 120 mg PO DAILY 04/24/21 04/25/21 History folic acid 1 mg PO DAILY 04/24/21 04/25/21 History multivitamin,ih-orlp-cyraiomu 1 tablet PO DAILY 04/24/21 04/25/21 History [Complete Multivitamin] rosuvastatin 40 mg PO QPM 04/24/21 04/25/21 History spironolactone 25 mg PO DAILY 04/24/21 04/25/21 H
[2021-04-25 16:27] LABS: Glucose Point of Care 149 mg/dl (65-105)
[2021-04-25 17:19] LABS: Anion Gap 8 mmol/L (8-16); Blood Urea Nitrogen 11 mg/dL (9-20); Calcium 8.7 mg/dL (8.4-10.2); Carbon Dioxide 22 mmol/L (22-30); Chloride 110 mmol/L (98-107); Estimated CRCL calculation 55 ml/min; Estimated Glomerular Filt Rate > 60; Glucose 156 mg/dL (65-110); Potassium 4.2 mmol/L (3.4-5.0); Sodium 140 mmol/L (137-145)
[2021-04-25 21:10] LABS: Glucose Point of Care 95 mg/dl (65-105)
[2021-04-25] MEDS: REMDESIVIR 100 MG/NS 250 ML 100 MG/250 ML BAG 250 MG IVPB (21:10)
[2021-04-26] VITALS (12 sets, daily range): BP systolic 108–127; BP diastolic 58–83; PULSE 87–107; RESP 16–28; TEMP 37–38.7; O2SAT 98–100
[2021-04-26 04:13] LABS: Hematocrit 30.8 % (42.0-52.0); Hemoglobin 10.4 g/dL (14.0-18.0); Mean Corpuscular HGB Conc 33.8 g/dl (32-36); Mean Corpuscular Hemoglobin 30.3 pg (26-34); Mean Corpuscular Volume 89.8 fl (80-100); Mean Platelet Volume 10.9 fl (7.4-10.4); Platelet Count Result 296 k/mm3 (150-375); Red Blood Count 3.43 M/mm3 (4.6-6.20); Red Cell Distribution Width 15.3 % (11.5-14.5); White Blood Count 21.4 K/mm3 (4.5-10.0)
[2021-04-26 04:25] LABS: Alanine Aminotransferase 19 U/L (4-50); Albumin Level 2.9 g/dL (3.5-5.1); Alkaline Phosphatase 111 U/L (38-126); Anion Gap 12 mmol/L (8-16); Aspartate Amino Transferase 34 U/L (17-59); Bilirubin,Total 0.6 mg/dL (0.2-1.3); Blood Urea Nitrogen 14 mg/dL (9-20); Calcium 8.4 mg/dL (8.4-10.2); Carbon Dioxide 17 mmol/L (22-30); Chloride 110 mmol/L (98-107); Estimated CRCL calculation 55 ml/min; Estimated Glomerular Filt Rate > 60; Glucose 116 mg/dL (65-110); INR 1.3; Magnesium 1.7 mg/dL (1.6-2.3); Phosphorus 3.6 mg/dL (2.5-4.5); Potassium 3.8 mmol/L (3.4-5.0); Prothrombin Time 15.8 Seconds (11.1-14.7); Sodium 139 mmol/L (137-145)
[2021-04-26] MEDS: FOLIC ACID 1 MG/0.2 ML INJ IV PUSH (09:11)
--- NOTE | 2021-04-26 09:11 | WPDGIPROGNO ---
Progress Note: A&P Assessment and Plan (1) Pancreatic mass: Code(s): K86.89 - Other specified diseases of pancreas Status: Acute Assessment and Plan: I think it is history favors chronic pancreatitis more than malignancy. I will obtain a CA 19-9, though it will not be is reliable with acute pancreatitis because that can elevate the test. Ultimately he will need EUS and biopsy in [place]. MRCP can be done here. He also has masses in both kidneys will order MRCP (2) Alcohol abuse: Code(s): F10.10 - Alcohol abuse, uncomplicated Status: Chronic Assessment and Plan: he admits to alcohol abuse but denies previous hospitalizations due to alcohol related problems. CT shows rib fractures suggesting he may have been following liver enzymes are normal. (3) COVID: Code(s): U07.1 - COVID-19 Status: Acute Assessment and Plan: This was diagnosed 2 or 3 days ago when he was seen in the clinic at the [facility] (4) Sepsis: Code(s): A41.9 - Sepsis, unspecified organism Status: Acute Assessment and Plan: etiology unknown. He has no findings on chest x-ray that would imply pneumonia White blood count 21,400 today (5) Protein calorie malnutrition: Code(s): E46 - Unspecified protein-calorie malnutrition Status: Acute Assessment and Plan: with low albumin, 2.6, and lymphopenia. He is clearly malnourished. I will repeat order diet for him Subjective Date/time seen: 04/26/21 09:11 today he denies complaints. He is resting comfortably. I asked him how he is eating. We advanced his diet but he told me that he has had nothing to eat. Review of Systems Review of Systems: All systems reviewed & are unremarkable except as noted in HPI and below Exam Const: General: alert Orientation/consciousness: oriented to person and oriented to place Resp: Auscultation: clear to auscultation bilaterally Cardio: Rhythm: regular rhythm GI: Inspection: normal to inspection GI Palp: Yes Soft to palpation, Yes Tenderness to palpation present (GI) ( Epigastric area), No Guarding due to palpation present (GI) and Yes No hepatosplenomegaly present Neuro: General: oriented to person, oriented to place and other ( Drowsy) Objective Data Vital Signs Vital Signs: Vital Signs - 24 hr 04/25/21 10:00 04/25/21 12:00 04/25/21 14:00 Temperature 36.4 C Pulse Rate 86 80 81 Respiratory Rate 22 H 24 H 22 H Blood Pressure 95/77 L 114/79 113/81 Pulse Oximetry 99 100 98 04/25/21 16:00 04/25/21 20:00 04/25/21 20:55 Temperature 36.4 C L 38.6 C H 39.3 C H Pulse Rate 87 105 H Respiratory Rate 20 27 H Blood Pressure 126/81 142/87 H Pulse Oximetry 100 100 04/25/21 21:25 04/25/21 22:00 04/26/21 00:00 Temperature 39.2 C H 38.3 C H 37.4 C Pulse Rate 104 H 93 Respiratory Rate 21 H 22 H Blood Pressure 109/70 114/76 Pulse Oximetry 97 100 04/26/21 02:00 04/26/21 04:00 04/26/21 06:00 Temperature 37.1 C 38.0 C H Pulse Rate 90 95 106 H Respiratory Rate 23 H 24 H Blood Pressure 108/58 L 119/67 118/78 Pulse Oximetry 98 100 04/26/21 08:00 04/26/21 08:37 Temperature 38.7 C H Pulse Rate 107 H Respiratory Rate 17 Blood Pressure 108/70 Pulse Oximetry 100 99 Intake/Output Intake/Output: Intake & Output 04/23/21 04/24/21 04/25/21 04/26/21 23:59 23:59 23:59 23:59 Intake Total 2520 4711 950 Output Total 2500 1125 Balance 2520 2211 -851 Meds/Results Medications: Active Medications Generic Name Dose Route Start Last Admin Trade Name Freq PRN Reason Stop Dose Admin Albuterol 2 puff 04/24/21 22:38 Albuterol Sulfate (*Sp) Aerosol 1 Puff INHALATION Q6HRT PRN Shortness Of Breath Aspirin 325 mg 04/25/21 09:00 04/25/21 11:24 Aspirin 325 Mg Enteric Tablet PO 325 mg QAM RICK Administration Dextrose 12.5 gm 04/24/21 20:06 04/25/21 04:22 Dextrose 50% 25 Gm/50 Ml Syringe
[2021-04-26] MEDS: THIAMINE HCL 200 MG/2 ML VIAL 100 MG IV PUSH (09:12)
[2021-04-26] MEDS: ASPIRIN 325 MG ENTERIC TABLET PO (09:12)
[2021-04-26] MEDS: ROSUVASTATIN 10 MG TABLET 40 MG PO (09:12)
[2021-04-26] MEDS: ENOXAPARIN 80 MG/0.8 ML SYRINGE 70 MG SUB-Q ×2 (09:12→20:55)
--- NOTE | 2021-04-26 11:03 | PM.IMPN ---
Progress Note: A&P Assessment and Plan (1) Protein calorie malnutrition: Code(s): E46 - Unspecified protein-calorie malnutrition Status: Acute Assessment and Plan: Dietitian consult (2) Sepsis: Code(s): A41.9 - Sepsis, unspecified organism Status: Acute Assessment and Plan: Probably related to UTI and COVID-19 Lactic acid improving Change antibiotic to ertapenem as patient has worsening leukocytosis and urine culture as positive for E coli concern for ESBL (3) Encephalopathy: Code(s): G93.40 - Encephalopathy, unspecified Status: Acute Assessment and Plan: Multifactorial most likely related to chronic alcoholism sepsis DKA code stroke was called on 04/25/21 CTA negative will get MRI of the brain once patient is more hemodynamically stable (4) Pulmonary embolism: Code(s): I26.99 - Other pulmonary embolism without acute cor pulmonale Status: Acute Assessment and Plan: Continue Lovenox for now (5) Pancreatic mass: Code(s): K86.89 - Other specified diseases of pancreas Status: Acute Assessment and Plan: A GI evaluation MRI when patient is hemodynamically stable 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 (6) Alcohol abuse: Code(s): F10.10 - Alcohol abuse, uncomplicated Status: Chronic Assessment and Plan: Continue alcohol withdrawal protocol (7) DM2 (diabetes mellitus, type 2): Code(s): E11.9 - Type 2 diabetes mellitus without complications Status: Chronic Assessment and Plan: Insulin sliding scale (8) DKA (diabetic ketoacidosis): Code(s): E11.10 - Type 2 diabetes mellitus with ketoacidosis without coma Status: Acute Assessment and Plan: Resolved insulin sliding scale (9) COVID: Code(s): U07.1 - COVID-19 Status: Acute Assessment and Plan: Out of window for remdisever Continue COVID-19 protocol (10) Renal mass: Code(s): N28.89 - Other specified disorders of kidney and ureter Status: Acute (11) Compressed spine fracture: Code(s): M48.50XA - Collapsed vertebra, not elsewhere classified, site unspecified, initial encounter for fracture Status: Acute Assessment and Plan: Probably chronic monitor Additional Plan Bilateral renal masses consider MRI Subjective Date/time seen: 04/26/21 11:03 Interval history: 65 years old male with past medical history of chronic alcoholism presented to the hospital with cough for 2 weeks patient generally go to [facility] he is a [place] patient was diverted to [facility] as [facility] does not have isolation bed and there was concern for COVID-19 COVID-19 was positive on admission CTA showed pulmonary embolism and pancreatic mass patient was started on therapeutic Lovenox and GI was consulted during hospitalization patient had code stroke CT of the head is negative stroke was ruled out patient had acute metabolic encephalopathy most likely related to chronic alcoholism COVID-19 infection and Pe Patient feels weak complain of cough Patient denies fever headache chest pain I am seeing the patient for cough Exam Narrative: Alert Chest bilateral crackles Abdomen nontender nondistended CVS S1 + S2 Lower extremity edema Neurology Moves all extremity no facial asymmetry positive generalized weakness Objective Data Vital Signs Vital Signs: Vital Signs - 24 hr 04/25/21 12:00 04/25/21 14:00 04/25/21 16:00 Temperature 97.6 F 97.5 F L Pulse Rate 80 81 87 Respiratory Rate 24 H 22 H 20 Blood Pressure 114/79 113/81 126/81 Pulse Oximetry 100 98 100 04/25/21 20:00 04/25/21 20:55 04/25/21 21:25 Temperature 101.5 F H 102.7 F H 102.5 F H Pulse Rate 105 H Respiratory Rate 27 H Blood Pressure 142/87 H Pulse Oximetry 100 04/25/21 22:00 04/26/21 00:00 04/26/21 02:00 Temperature 100.9 F H 99.4 F 98.8 F Pulse Rate 104 H 93 90 Respiratory Ra
[2021-04-26 11:57] LABS: Glucose Point of Care 97 mg/dl (65-105)
[2021-04-26] MEDS: dilTIAZem HCL 30 MG TABLET PO ×2 (12:58→18:48)
[2021-04-26] MEDS: MAGNESIUM SULF 2 GM/WATER 50ML 2 GM/50 ML BAG IVPB (12:58)
[2021-04-26] MEDS: SODIUM CHLORIDE 0.9% IV 1,000 ML 75 ML IV CONT (12:58)
[2021-04-26] MEDS: THERAPEUTIC MULTIVITAMINS/MINERALS TAB (*BKC) 1 TABLET PO (12:58)
[2021-04-26] MEDS: POTASSIUM CHLORIDE 20 MEQ TABLET 40 MEQ PO (12:58)
[2021-04-26] MEDS: ERTAPENEM 1 GM/NS 50 ML 1 GM/50 ML BAG IVPB (14:30)
--- NOTE | 2021-04-26 14:55 | PC.NURSE ---
This patient, Tirso Baum, was transferred to [facility] on 04/26/21 at 1450. Personal belongings sent with patient. Report given to Carrie HIGUERA. Appropriate documentation sent with patient.
--- NOTE | 2021-04-26 15:28 | PC.NURSE ---
pt transferred in to room 332 via bed, oriented to new room and environment, reviewed plan of care, placed on shoddy mill worker per MD orders, pt resting comfortably
[2021-04-26 17:20] LABS: Glucose Point of Care 162 mg/dl (65-105)
[2021-04-26] MEDS: INSULIN ASPART (*BKC) 100 UNITS/ML SUB-Q (20:59)
[2021-04-26] MEDS: REMDESIVIR 100 MG/NS 250 ML 100 MG/250 ML BAG 250 MG IVPB (22:13)
[2021-04-26 22:18] LABS: Glucose Point of Care 256 mg/dl (65-105)
[2021-04-27] VITALS (8 sets, daily range): BP systolic 102–151; BP diastolic 65–90; PULSE 82–91; RESP 16–20; TEMP 36.7–37.9; O2SAT 96–99
[2021-04-27] MEDS: dilTIAZem HCL 30 MG TABLET PO ×4 (00:06→17:58)
[2021-04-27] MEDS: SODIUM CHLORIDE 0.9% IV 1,000 ML 75 ML IV CONT ×2 (05:56→17:58)
[2021-04-27 06:47] LABS: Hemoglobin 10.5 g/dL (14.0-18.0); Mean Corpuscular HGB Conc 36.2 g/dl (32-36); Mean Corpuscular Hemoglobin 30.2 pg (26-34); Mean Corpuscular Volume 83.3 fl (80-100); Mean Platelet Volume 10.9 fl (7.4-10.4); Platelet Count Result 277 k/mm3 (150-375); Red Blood Count 3.48 M/mm3 (4.6-6.20); Red Cell Distribution Width 15.1 % (11.5-14.5); White Blood Count 12.5 K/mm3 (4.5-10.0)
[2021-04-27 07:07] LABS: Alanine Aminotransferase 17 U/L (4-50); Albumin Level 2.8 g/dL (3.5-5.1); Alkaline Phosphatase 150 U/L (38-126); Anion Gap 8 mmol/L (8-16); Aspartate Amino Transferase 35 U/L (17-59); Bilirubin,Total 0.5 mg/dL (0.2-1.3); Blood Urea Nitrogen 13 mg/dL (9-20); Calcium 8.2 mg/dL (8.4-10.2); Carbon Dioxide 20 mmol/L (22-30); Chloride 106 mmol/L (98-107); Estimated CRCL calculation 53 ml/min; Estimated Glomerular Filt Rate > 60; Glucose 110 mg/dL (65-110); Magnesium 1.8 mg/dL (1.6-2.3); Potassium 3.4 mmol/L (3.4-5.0); Sodium 134 mmol/L (137-145)
[2021-04-27 07:27] LABS: INR 1.3
[2021-04-27 08:15] LABS: Glucose Point of Care 167 mg/dl (65-105)
[2021-04-27] MEDS: FOLIC ACID 1 MG TABLET PO (08:31)
[2021-04-27] MEDS: THERAPEUTIC MULTIVITAMINS/MINERALS TAB (*BKC) 1 TABLET PO (08:31)
[2021-04-27] MEDS: ASPIRIN 325 MG ENTERIC TABLET PO (08:31)
[2021-04-27] MEDS: THIAMINE HCL 200 MG/2 ML VIAL 100 MG IV PUSH (08:31)
[2021-04-27] MEDS: ENOXAPARIN 80 MG/0.8 ML SYRINGE 70 MG SUB-Q ×2 (08:31→21:38)
--- NOTE | 2021-04-27 09:09 | PM.IMPN ---
Progress Note: A&P Assessment and Plan (1) Protein calorie malnutrition: Code(s): E46 - Unspecified protein-calorie malnutrition Status: Acute Assessment and Plan: Severe protein calorie malnutrition Dietitian consult (2) Sepsis: Code(s): A41.9 - Sepsis, unspecified organism Status: Acute Assessment and Plan: Probably related to UTI and COVID-19 Lactic acid improving Change antibiotic to ertapenem as patient has worsening leukocytosis and urine culture as positive for E coli concern for ESBL pending final culture (3) Encephalopathy: Code(s): G93.40 - Encephalopathy, unspecified Status: Acute Assessment and Plan: Multifactorial most likely related to chronic alcoholism sepsis DKA code stroke was called on 04/25/21 CTA negative will get MRI of the brain once patient is more hemodynamically stable resolved (4) Pulmonary embolism: Code(s): I26.99 - Other pulmonary embolism without acute cor pulmonale Status: Acute Assessment and Plan: Continue Lovenox for now pending MRI of the abdomen most likely patient will be on Coumadin as there was concern for malignancy (5) Pancreatic mass: Code(s): K86.89 - Other specified diseases of pancreas Status: Acute Assessment and Plan: A GI evaluation MRI when patient is hemodynamically stable 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 (6) Alcohol abuse: Code(s): F10.10 - Alcohol abuse, uncomplicated Status: Chronic Assessment and Plan: Continue alcohol withdrawal protocol (7) DM2 (diabetes mellitus, type 2): Code(s): E11.9 - Type 2 diabetes mellitus without complications Status: Chronic Assessment and Plan: Insulin sliding scale (8) DKA (diabetic ketoacidosis): Code(s): E11.10 - Type 2 diabetes mellitus with ketoacidosis without coma Status: Acute Assessment and Plan: Resolved insulin sliding scale (9) COVID: Code(s): U07.1 - COVID-19 Status: Acute Assessment and Plan: Out of window for remdisever Continue COVID-19 protocol (10) Renal mass: Code(s): N28.89 - Other specified disorders of kidney and ureter Status: Acute (11) Compressed spine fracture: Code(s): M48.50XA - Collapsed vertebra, not elsewhere classified, site unspecified, initial encounter for fracture Status: Acute Assessment and Plan: Probably chronic monitor Additional Plan Bilateral renal masses consider MRI Subjective Date/time seen: 04/27/21 09:09 Interval history: 65 years old male with past medical history of chronic alcoholism presented to the hospital with cough for 2 weeks patient generally go to [facility] he is a [place] patient was diverted to [facility] [place] [facility] [place] isolation bed and there was concern for COVID-19 COVID-19 was positive on admission CTA showed pulmonary embolism and pancreatic mass patient was started on therapeutic Lovenox and GI was consulted during hospitalization patient had code stroke CT of the head is negative stroke was ruled out patient had acute metabolic encephalopathy most likely related to chronic alcoholism COVID-19 infection and Pe Urine culture was positive for E coli Concern for ESBL patient was started on ertapenem and vancomycin leukocytosis improving pending final culture Patient feels weak complain of cough Patient denies fever headache chest pain I am seeing the patient for cough Exam Narrative: Alert Chest bilateral crackles Abdomen nontender nondistended CVS S1 + S2 Lower extremity edema Neurology Moves all extremity no facial asymmetry positive generalized weakness Objective Data Vital Signs Vital Signs: Vital Signs - 24 hr 04/26/21 10:00 04/26/21 12:00 04/26/21 15:30 Temperature 101.5 F H 100.7 F H Pulse Rate 102 H 100 87 Respiratory Rate 28 H 24 H Blood Pressure 114/71 116/83 Pulse Oximetry 100 99
[2021-04-27 12:03] LABS: Glucose Point of Care 177 mg/dl (65-105)
[2021-04-27] MEDS: ERTAPENEM 1 GM/NS 50 ML 1 GM/50 ML BAG IVPB (12:37)
[2021-04-27 16:38] LABS: Glucose Point of Care 171 mg/dl (65-105)
[2021-04-27] MEDS: ROSUVASTATIN 10 MG TABLET 40 MG PO (17:46)
[2021-04-27] MEDS: REMDESIVIR 100 MG/NS 250 ML 100 MG/250 ML BAG 250 MG IVPB (21:37)
[2021-04-27 22:40] LABS: Glucose Point of Care 158 mg/dl (65-105)
[2021-04-28] VITALS (9 sets, daily range): BP systolic 98–129; BP diastolic 51–72; PULSE 56–128; RESP 15–27; TEMP 36–39.4; O2SAT 95–98; BMI 19.6
[2021-04-28] MEDS: dilTIAZem HCL 30 MG TABLET PO ×3 (00:56→12:12)
[2021-04-28] MEDS: SODIUM CHLORIDE 0.9% IV 1,000 ML 75 ML IV CONT ×2 (05:20→12:07)
[2021-04-28 05:42] LABS: Glucose Point of Care 172 mg/dl (65-105)
[2021-04-28 06:54] LABS: Hemoglobin 10.4 g/dL (14.0-18.0); Mean Corpuscular HGB Conc 35.9 g/dl (32-36); Mean Corpuscular Hemoglobin 30.8 pg (26-34); Mean Corpuscular Volume 85.8 fl (80-100); Mean Platelet Volume 10.5 fl (7.4-10.4); Platelet Count Result 287 k/mm3 (150-375); Red Blood Count 3.38 M/mm3 (4.6-6.20); Red Cell Distribution Width 15.3 % (11.5-14.5); White Blood Count 8.1 K/mm3 (4.5-10.0)
[2021-04-28 07:17] LABS: INR 1.3; Prothrombin Time 16.4 Seconds (11.1-14.7)
--- NOTE | 2021-04-28 07:22 | WPDGIPROGNO ---
Progress Note: A&P Assessment and Plan (1) Pancreatic mass: Code(s): K86.89 - Other specified diseases of pancreas Status: Acute Assessment and Plan: I think it is history favors chronic pancreatitis more than malignancy. I will obtain a CA 19-9, though it will not be is reliable with acute pancreatitis because that can elevate the test. Ultimately he will need EUS and biopsy in [place]. MRCP can be done here. He also has masses in both kidneys (2) Alcohol abuse: Code(s): F10.10 - Alcohol abuse, uncomplicated Status: Chronic Assessment and Plan: he admits to alcohol abuse but denies previous hospitalizations due to alcohol related problems. CT shows rib fractures suggesting he may have been falling. liver enzymes are normal. (3) COVID: Code(s): U07.1 - COVID-19 Status: Acute Assessment and Plan: This was diagnosed 2 or 3 days ago when he was seen in the clinic at the [facility] (4) Sepsis: Code(s): A41.9 - Sepsis, unspecified organism Status: Acute Assessment and Plan: etiology unknown. He has no findings on chest x-ray that would imply pneumonia White blood count was21,400 Saturday, Down to 12,000 yesterday. He is being treated for ESBL (5) Protein calorie malnutrition: Code(s): E46 - Unspecified protein-calorie malnutrition Status: Acute Assessment and Plan: with low albumin, 2.6, and lymphopenia. He is clearly malnourished. I will try him on regular diet (6) Pulmonary embolism: Code(s): I26.99 - Other pulmonary embolism without acute cor pulmonale Status: Acute Assessment and Plan: remains anticoagulated (7) Encephalopathy: Code(s): G93.40 - Encephalopathy, unspecified Status: Acute Assessment and Plan: could be multifactorial, COVID, alcohol abuse etc. Subjective Date/time seen: 04/28/21 07:22 65-year-old male with multiple medical problems including chronic alcohol abuse. He generally goes to the [facility]. He was found to be COVID positive at admission. CT scan showed pulmonary embolism. He therefore has been started on Lovenox. He has evidence of metabolic encephalopathy probably due to alcohol abuse. Review of Systems Review of Systems: All systems reviewed & are unremarkable except as noted in HPI and below Exam Const: General: ill appearing and tired appearing Nutritional Appearance: thin Orientation/consciousness: oriented to person Resp: Auscultation: clear to auscultation bilaterally GI: Inspection: scaphoid GI Palp: No abdominal tenderness, Yes Soft to palpation and No Palpable mass present Auscultation: normal bowel sounds Objective Data Vital Signs Vital Signs: Vital Signs - 24 hr 04/27/21 08:00 04/27/21 12:00 04/27/21 16:00 Temperature 37.6 C 36.7 C 36.8 C Pulse Rate 88 89 82 Respiratory Rate 18 20 18 Blood Pressure 114/76 121/73 102/65 Pulse Oximetry 96 96 98 04/27/21 17:49 04/27/21 18:53 04/27/21 20:00 Temperature 36.8 C Pulse Rate 82 82 82 Respiratory Rate 16 16 Blood Pressure 112/70 120/79 Pulse Oximetry 99 99 04/28/21 00:00 Temperature 36.8 C Pulse Rate 85 Respiratory Rate 18 Blood Pressure 129/72 Pulse Oximetry 96 Intake/Output Intake/Output: Intake & Output 04/25/21 04/26/21 04/27/21 04/28/21 23:59 23:59 23:59 23:59 Intake Total 4711 2480 4640 1000 Output Total 2500 2925 2650 Balance 2211 -295 1989 999 Meds/Results Medications: Active Medications Generic Name Dose Route Start Last Admin Trade Name Freq PRN Reason Stop Dose Admin Albuterol 2 puff 04/24/21 22:38 Albuterol Sulfate (*Sp) Aerosol 1 Puff INHALATION Q6HRT PRN Shortness Of Breath Aspirin 325 mg 04/25/21 09:00 04/27/21 08:31 Aspirin 325 Mg Enteric Tablet PO 325 mg QAM RICK Administration Chlordiazepoxide HCl 25 mg 04/26/21 11:18 Chlordiazepoxide (*Crx) 25 M
[2021-04-28 07:32] LABS: Estimated CRCL calculation 65 ml/min; Estimated Glomerular Filt Rate > 60
[2021-04-28 07:39] LABS: Phosphorus 4.1 mg/dL (2.5-4.5)
[2021-04-28 08:05] LABS: Glucose Point of Care 148 mg/dl (65-105)
[2021-04-28] MEDS: ENOXAPARIN 80 MG/0.8 ML SYRINGE 70 MG SUB-Q ×2 (09:21→21:31)
[2021-04-28] MEDS: THIAMINE HCL 200 MG/2 ML VIAL 100 MG IV PUSH (09:21)
[2021-04-28] MEDS: ASPIRIN 325 MG ENTERIC TABLET PO (09:22)
[2021-04-28] MEDS: THERAPEUTIC MULTIVITAMINS/MINERALS TAB (*BKC) 1 TABLET PO (09:22)
[2021-04-28] MEDS: FOLIC ACID 1 MG TABLET PO (09:22)
--- NOTE | 2021-04-28 10:26 | PM.IMPN ---
Progress Note: A&P Assessment and Plan (1) Protein calorie malnutrition: Code(s): E46 - Unspecified protein-calorie malnutrition Status: Acute Assessment and Plan: Severe protein calorie malnutrition Dietitian consult (2) Sepsis: Code(s): A41.9 - Sepsis, unspecified organism Status: Acute Assessment and Plan: Probably related to UTI and COVID-19 Lactic acid improved Change antibiotic to Rocephin follow blood culture Patient will need 7 days of IV antibiotic total then another 7 days of oral antibiotics total of 14 days of antibiotics (3) Encephalopathy: Code(s): G93.40 - Encephalopathy, unspecified Status: Acute Assessment and Plan: Multifactorial most likely related to chronic alcoholism sepsis DKA code stroke was called on 04/25/21 CTA negative will get MRI of the brain once patient is more hemodynamically stable resolved (4) Pulmonary embolism: Code(s): I26.99 - Other pulmonary embolism without acute cor pulmonale Status: Acute Assessment and Plan: Continue Lovenox for now pending MRI of the abdomen most likely patient will be on Coumadin as there was concern for malignancy will get hemonc consult (5) Pancreatic mass: Code(s): K86.89 - Other specified diseases of pancreas Status: Acute Assessment and Plan: A GI evaluation MRI when patient is hemodynamically stable 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 mrcp pending EUS as out patient (6) Alcohol abuse: Code(s): F10.10 - Alcohol abuse, uncomplicated Status: Chronic Assessment and Plan: Continue alcohol withdrawal protocol (7) DM2 (diabetes mellitus, type 2): Code(s): E11.9 - Type 2 diabetes mellitus without complications Status: Chronic Assessment and Plan: Insulin sliding scale (8) DKA (diabetic ketoacidosis): Code(s): E11.10 - Type 2 diabetes mellitus with ketoacidosis without coma Status: Acute Assessment and Plan: Resolved insulin sliding scale (9) COVID: Code(s): U07.1 - COVID-19 Status: Acute Assessment and Plan: Out of window for remdisever Continue COVID-19 protocol (10) Renal mass: Code(s): N28.89 - Other specified disorders of kidney and ureter Status: Acute (11) Compressed spine fracture: Code(s): M48.50XA - Collapsed vertebra, not elsewhere classified, site unspecified, initial encounter for fracture Status: Acute Assessment and Plan: Probably chronic monitor Subjective Date/time seen: 04/28/21 10:26 Interval history: Interval history: 65 years old male with past medical history of chronic alcoholism presented to the hospital with cough for 2 weeks patient generally go to [facility] he is a [place] patient was diverted to [facility] as [place] [facility] does not have isolation bed and there was concern for COVID-19 COVID-19 was positive on admission CTA showed pulmonary embolism and pancreatic mass patient was started on therapeutic Lovenox and GI was consulted during hospitalization patient had code stroke CT of the head is negative stroke was ruled out patient had acute metabolic encephalopathy most likely related to chronic alcoholism COVID-19 infection and Pe Urine culture was positive for E coli Urine culture was positive for E coli sensitive for Rocephin blood cultures positive repeat blood cultures negative Patient feels weak complain of cough Patient denies fever headache chest pain I am seeing the patient for cough Objective Data Vital Signs Vital Signs: Vital Signs - 24 hr 04/27/21 12:00 04/27/21 16:00 04/27/21 17:49 Temperature 98.1 F 98.2 F Pulse Rate 89 82 82 Respiratory Rate 20 18 Blood Pressure 121/73 102/65 112/70 Pulse Oximetry 96 98 04/27/21 18:53 04/27/21 20:00 04/28/21 00:00 Temperature 98.3 F 98.2 F Pulse Rate 82 82 85 Respiratory Rate 16 16 18 Blood Pressure 120/79 129/72 P
[2021-04-28 11:02] LABS: Alanine Aminotransferase 20 U/L (4-50)
[2021-04-28 11:03] LABS: Alanine Aminotransferase 20 U/L (4-50); Alkaline Phosphatase 284 U/L (38-126); Anion Gap 9 mmol/L (8-16); Aspartate Amino Transferase 54 U/L (17-59); Bilirubin,Total 0.8 mg/dL (0.2-1.3); Blood Urea Nitrogen 10 mg/dL (9-20); Calcium 8.4 mg/dL (8.4-10.2); Carbon Dioxide 22 mmol/L (22-30); Chloride 103 mmol/L (98-107); Estimated CRCL calculation 59 ml/min; Estimated Glomerular Filt Rate > 60; Glucose 193 mg/dL (65-110); Sodium 134 mmol/L (137-145)
[2021-04-28 11:41] LABS: Glucose Point of Care 176 mg/dl (65-105)
[2021-04-28] MEDS: METOPROLOL TARTRATE 12.5 MG TABLET PO ×2 (12:08→21:31)
[2021-04-28] MEDS: cefTRIAXone 2 GM in SODIUM CHLORIDE 0.9% IV 100 ML 200 ML IVPB (12:09)
[2021-04-28] MEDS: chlordiazePOXIDE (*CRX) 25 MG CAPSULE PO (12:12)
[2021-04-28] MEDS: LORazepam INJ (*CRX) 2 MG/ML VIAL 1 MG IV PUSH (12:12)
--- NOTE | 2021-04-28 13:02 | WPDCDIQUERY2 ---
CDI Query Clarification Request -04/25 venous doppler :FINDINGS: The visualized portions of right common femoral vein, profunda (deep) femoral vein, and greater saphenous vein outflow are patent. There is thrombus in right femoral vein, popliteal vein, and posterior tibial, peroneal, and gastrocnemius veins. There is thrombus in left common femoral vein, profunda femoral vein, femoral vein, popliteal vein, a peroneal vein, and greater saphenous vein. IMPRESSION: 1. Bilateral acute deep vein thrombosis. Please clarify if there is a possible corresponding diagnosis for above finding. <Melissa Neri RN - Last Filed: 04/28/21 13:06> acute dvt lower extremities bilateral <Alesha Millan MD - Last Filed: 04/28/21 18:32>
[2021-04-28 16:38] LABS: Glucose Point of Care 229 mg/dl (65-105)
[2021-04-28] MEDS: INSULIN ASPART (*BKC) 100 UNITS/ML SUB-Q (16:53)
[2021-04-28] MEDS: ROSUVASTATIN 10 MG TABLET 40 MG PO (16:53)
[2021-04-28 19:12] LABS: Vancomycin Trough 6.8 ug/mL (10.0-20.0)
[2021-04-28] MEDS: REMDESIVIR 100 MG/NS 250 ML 100 MG/250 ML BAG 250 MG IVPB (21:31)
[2021-04-28 22:56] LABS: Glucose Point of Care 196 mg/dl (65-105)
[2021-04-28 22:56] LABS: Glucose Point of Care 212 mg/dl (65-105)
[2021-04-29] VITALS (10 sets, daily range): BP systolic 95–140; BP diastolic 62–105; PULSE 66–88; RESP 18–20; TEMP 36.2–36.8; O2SAT 97–98
[2021-04-29] MEDS: SODIUM CHLORIDE 0.9% IV 1,000 ML 75 ML IV CONT (02:43)
[2021-04-29] MEDS: dilTIAZem HCL 30 MG TABLET PO ×2 (05:54→17:21)
[2021-04-29 07:33] LABS: Hematocrit 28.6 % (42.0-52.0); Hemoglobin 10.1 g/dL (14.0-18.0); Mean Corpuscular HGB Conc 35.3 g/dl (32-36); Mean Corpuscular Hemoglobin 30.2 pg (26-34); Mean Corpuscular Volume 85.6 fl (80-100); Mean Platelet Volume 10.4 fl (7.4-10.4); Platelet Count Result 277 k/mm3 (150-375); Red Blood Count 3.34 M/mm3 (4.6-6.20); Red Cell Distribution Width 15.4 % (11.5-14.5); White Blood Count 11.3 K/mm3 (4.5-10.0)
[2021-04-29 07:46] LABS: Alanine Aminotransferase 17 U/L (4-50); Albumin Level 2.7 g/dL (3.5-5.1); Alkaline Phosphatase 197 U/L (38-126); Anion Gap 9 mmol/L (8-16); Aspartate Amino Transferase 39 U/L (17-59); Bilirubin,Total 0.4 mg/dL (0.2-1.3); Blood Urea Nitrogen 8 mg/dL (9-20); Calcium 8.1 mg/dL (8.4-10.2); Carbon Dioxide 23 mmol/L (22-30); Chloride 106 mmol/L (98-107); Estimated CRCL calculation 76 ml/min; Estimated Glomerular Filt Rate > 60; Glucose 129 mg/dL (65-110); Magnesium 1.6 mg/dL (1.6-2.3); Phosphorus 3.9 mg/dL (2.5-4.5); Potassium 2.9 mmol/L (3.4-5.0); Sodium 138 mmol/L (137-145)
[2021-04-29 07:51] LABS: Glucose Point of Care 147 mg/dl (65-105)
[2021-04-29] MEDS: METOPROLOL TARTRATE 12.5 MG TABLET PO ×2 (09:32→20:58)
[2021-04-29] MEDS: THERAPEUTIC MULTIVITAMINS/MINERALS TAB (*BKC) 1 TABLET PO (09:32)
[2021-04-29] MEDS: ASPIRIN 325 MG ENTERIC TABLET PO (09:32)
[2021-04-29] MEDS: THIAMINE HCL 200 MG/2 ML VIAL 100 MG IV PUSH (09:33)
[2021-04-29] MEDS: FOLIC ACID 1 MG TABLET PO (09:33)
[2021-04-29] MEDS: POTASSIUM CHLORIDE 20 MEQ TABLET 40 MEQ PO (09:35)
[2021-04-29] MEDS: POTASSIUM CHLORIDE INJ 40 MEQ in SODIUM CHLORIDE 0.9% IV 500 ML 130 MEQ IVPB (11:39)
[2021-04-29] MEDS: cefTRIAXone 2 GM in SODIUM CHLORIDE 0.9% IV 100 ML 200 ML IVPB (11:39)
[2021-04-29 13:13] LABS: Glucose Point of Care 165 mg/dl (65-105)
--- NOTE | 2021-04-29 13:44 | PM.IMPN ---
Progress Note: A&P Assessment and Plan (1) Protein calorie malnutrition: Code(s): E46 - Unspecified protein-calorie malnutrition Status: Acute Assessment and Plan: Severe protein calorie malnutrition Dietitian consult 04/29/2021 Interval history: today patient agitated is known to take Lovenox and does not answer any questions, patient with sepsis secondary to UTI and blood culture both are positive E coli is being treated with Rocephin will require total of 7 days of IV antibiotic 2/7 thereafter 7 does of or antibiotic, patient with history of alcohol abuse on CIWA protocol, hyperkalemia most likely secondary alcohol abuse will monitor and supplement. patient work with PT OT. (2) Sepsis: Code(s): A41.9 - Sepsis, unspecified organism Status: Acute Assessment and Plan: Probably related to UTI and COVID-19 Lactic acid improved Change antibiotic to Rocephin follow blood culture Patient will need 7 days of IV antibiotic total then another 7 days of oral antibiotics total of 14 days of antibiotics (3) Encephalopathy: Code(s): G93.40 - Encephalopathy, unspecified Status: Acute Assessment and Plan: Multifactorial most likely related to chronic alcoholism sepsis DKA code stroke was called on 04/25/21 CTA negative will get MRI of the brain once patient is more hemodynamically stable resolved (4) Pulmonary embolism: Code(s): I26.99 - Other pulmonary embolism without acute cor pulmonale Status: Acute Assessment and Plan: Continue Lovenox for now pending MRI of the abdomen most likely patient will be on Coumadin as there was concern for malignancy will get hemonc consult (5) Pancreatic mass: Code(s): K86.89 - Other specified diseases of pancreas Status: Acute Assessment and Plan: A GI evaluation MRI when patient is hemodynamically stable 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 mrcp pending EUS as out patient (6) Alcohol abuse: Code(s): F10.10 - Alcohol abuse, uncomplicated Status: Chronic Assessment and Plan: Continue alcohol withdrawal protocol (7) DM2 (diabetes mellitus, type 2): Code(s): E11.9 - Type 2 diabetes mellitus without complications Status: Chronic Assessment and Plan: Insulin sliding scale (8) DKA (diabetic ketoacidosis): Code(s): E11.10 - Type 2 diabetes mellitus with ketoacidosis without coma Status: Acute Assessment and Plan: Resolved insulin sliding scale (9) COVID: Code(s): U07.1 - COVID-19 Status: Acute Assessment and Plan: Out of window for remdisever Continue COVID-19 protocol (10) Renal mass: Code(s): N28.89 - Other specified disorders of kidney and ureter Status: Acute (11) Compressed spine fracture: Code(s): M48.50XA - Collapsed vertebra, not elsewhere classified, site unspecified, initial encounter for fracture Status: Acute Assessment and Plan: Probably chronic monitor Subjective Date/time seen: 04/29/21 13:44 Interval history: Interval history: 65 years old male with past medical history of chronic alcoholism presented to the hospital with cough for 2 weeks patient generally go to [facility] [place] was diverted [facility] [place] [facility] does [place] isolation bed and there was concern for COVID-19 COVID-19 was positive on admission CTA showed pulmonary embolism and pancreatic mass patient was started on therapeutic Lovenox and GI was consulted during hospitalization patient had code stroke CT of the head is negative stroke was ruled out patient had acute metabolic encephalopathy most likely related to chronic alcoholism COVID-19 infection and Pe Urine culture was positive for E coli Urine culture was positive for E coli sensitive for Rocephin blood cultures positive repeat blood cultures negative Patient feels weak complain of cough Patient denies f
[2021-04-29] MEDS: ROSUVASTATIN 10 MG TABLET 40 MG PO (17:11)
[2021-04-29 18:28] LABS: Glucose Point of Care 179 mg/dl (65-105)
[2021-04-29 22:31] LABS: Glucose Point of Care 235 mg/dl (65-105)
[2021-04-30] VITALS: BP 128/72; PULSE 86; RESP 16; TEMP 37.1; O2SAT 99
[2021-04-30] MEDS: dilTIAZem HCL 30 MG TABLET PO ×3 (00:36→11:44)
[2021-04-30 04:00] VITALS: BP 129/78; PULSE 88; RESP 17; TEMP 36.9; O2SAT 99
[2021-04-30 05:52] LABS: CA 19-9 40 U/mL (<34)
[2021-04-30 06:57] LABS: Alanine Aminotransferase 20 U/L (4-50); Albumin Level 2.7 g/dL (3.5-5.1); Alkaline Phosphatase 191 U/L (38-126); Anion Gap 6 mmol/L (8-16); Aspartate Amino Transferase 40 U/L (17-59); Bilirubin,Total 0.3 mg/dL (0.2-1.3); Blood Urea Nitrogen 7 mg/dL (9-20); Calcium 8.3 mg/dL (8.4-10.2); Carbon Dioxide 23 mmol/L (22-30); Chloride 106 mmol/L (98-107); Estimated CRCL calculation 68 ml/min; Estimated Glomerular Filt Rate > 60; Glucose 167 mg/dL (65-110); Hematocrit 29.2 % (42.0-52.0); Hemoglobin 10.3 g/dL (14.0-18.0); Magnesium 1.7 mg/dL (1.6-2.3); Mean Corpuscular HGB Conc 35.3 g/dl (32-36); Mean Corpuscular Hemoglobin 30.3 pg (26-34); Mean Corpuscular Volume 85.9 fl (80-100); Mean Platelet Volume 10.2 fl (7.4-10.4); Phosphorus 3.3 mg/dL (2.5-4.5); Platelet Count Result 298 k/mm3 (150-375); Potassium 3.3 mmol/L (3.4-5.0); Red Cell Distribution Width 15.4 % (11.5-14.5); Sodium 135 mmol/L (137-145); White Blood Count 10.1 K/mm3 (4.5-10.0)
[2021-04-30 08:00] VITALS: BP 121/64; PULSE 84; RESP 18; TEMP 37.2; O2SAT 100
[2021-04-30] MEDS: METOPROLOL TARTRATE 12.5 MG TABLET PO (09:01)
[2021-04-30] MEDS: ASPIRIN 325 MG ENTERIC TABLET PO (09:01)
[2021-04-30] MEDS: POTASSIUM CHLORIDE 20 MEQ TABLET 40 MEQ PO (09:01)
[2021-04-30] MEDS: THERAPEUTIC MULTIVITAMINS/MINERALS TAB (*BKC) 1 TABLET PO (09:01)
[2021-04-30] MEDS: FOLIC ACID 1 MG TABLET PO (09:02)
[2021-04-30] MEDS: THIAMINE HCL 200 MG/2 ML VIAL 100 MG IV PUSH (09:02)
--- NOTE | 2021-04-30 09:47 | PM.DS ---
DS: Admitting Diagnosis Discharge Date 04/30/2021 Admitting Diagnosis Shortness of breath DS: Discharge Diagnosis Discharge Diagnosis (1) Protein calorie malnutrition: Code(s): E46 - Unspecified protein-calorie malnutrition Status: Acute Assessment and Plan: Severe protein calorie malnutrition Dietitian consult 04/29/2021 Interval history: today patient agitated is known to take Lovenox and does not answer any questions, patient with sepsis secondary to UTI and blood culture both are positive E coli is being treated with Rocephin will require total of 7 days of IV antibiotic 2/7 thereafter 7 does of or antibiotic, patient with history of alcohol abuse on CIWA protocol, hyperkalemia most likely secondary alcohol abuse will monitor and supplement. patient work with PT OT. (2) Sepsis: Code(s): A41.9 - Sepsis, unspecified organism Status: Acute Assessment and Plan: Probably related to UTI and COVID-19 Lactic acid improved Change antibiotic to Rocephin follow blood culture Patient will need 7 days of IV antibiotic total then another 7 days of oral antibiotics total of 14 days of antibiotics (3) Encephalopathy: Code(s): G93.40 - Encephalopathy, unspecified Status: Acute Assessment and Plan: Multifactorial most likely related to chronic alcoholism sepsis DKA code stroke was called on 04/25/21 CTA negative will get MRI of the brain once patient is more hemodynamically stable resolved (4) Pulmonary embolism: Code(s): I26.99 - Other pulmonary embolism without acute cor pulmonale Status: Acute Assessment and Plan: Continue Lovenox for now pending MRI of the abdomen most likely patient will be on Coumadin as there was concern for malignancy will get hemonc consult (5) Pancreatic mass: Code(s): K86.89 - Other specified diseases of pancreas Status: Acute Assessment and Plan: A GI evaluation MRI when patient is hemodynamically stable 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 mrcp pending EUS as out patient (6) Alcohol abuse: Code(s): F10.10 - Alcohol abuse, uncomplicated Status: Chronic Assessment and Plan: Continue alcohol withdrawal protocol (7) DM2 (diabetes mellitus, type 2): Code(s): E11.9 - Type 2 diabetes mellitus without complications Status: Chronic Assessment and Plan: Insulin sliding scale (8) DKA (diabetic ketoacidosis): Code(s): E11.10 - Type 2 diabetes mellitus with ketoacidosis without coma Status: Acute Assessment and Plan: Resolved insulin sliding scale (9) COVID: Code(s): U07.1 - COVID-19 Status: Acute Assessment and Plan: Out of window for remdisever Continue COVID-19 protocol (10) Renal mass: Code(s): N28.89 - Other specified disorders of kidney and ureter Status: Acute (11) Compressed spine fracture: Code(s): M48.50XA - Collapsed vertebra, not elsewhere classified, site unspecified, initial encounter for fracture Status: Acute Assessment and Plan: Probably chronic monitor DS: Summary Hospital Course Reason for hospitalization: this is a 65-year-old male patient who has a history of alcohol abuse, and hypertension. The patient lives with his daughter. Although [facility] he typically does not go to the [place] and typically goes to [facility]. The patient was brought to [place] ER as the patient had been suspected to have COVID. The [facility] stated that they did not have any isolation beds for possible COVID patient therefore the patient was diverted to [facility] instead of [facility]. The patient has been coughing for 2 weeks. He denies any COVID vaccines. The patient has a history of alcoholism drinking up to a pt of whiskey a day but stated that he has not drink in 2 days. Patient's white count is 17.7. H&H is 12.4 and 35.3. Patient's A
[2021-04-30] MEDS: cefTRIAXone 2 GM in SODIUM CHLORIDE 0.9% IV 100 ML 200 ML IVPB (11:44)
[2021-04-30 12:00] VITALS: BP 100/65; PULSE 80; RESP 18; TEMP 36.2; O2SAT 100
[2021-04-30 12:23] LABS: Glucose Point of Care 183 mg/dl (65-105)
--- NOTE | 2021-04-30 12:48 | PCDIET ---
Nutrition follow up. Spoke to nursing who reports that pt is being d/c today (04/30/21). No further nutritional needs. No further nutrition interventions at this time.
== END 2021-04-30 14:35 | disposition home or self-care (01) | DRG 871 ==
LOC: ANHED 18:08 → ANHICU 21:33 → ANH3MEDSUR 04-30 09:47 → ANHICU 05-01 11:13
PROVIDERS: Internal Medicine; Internal Medicine Gastroenterology; Nurse Practitioner; Admitting Provider Internal Medicine; Emergency Provider General Practice; Visit Provider Internal Medicine
DX: A41.89 Other specified sepsis (principal); U07.1 COVID-19; E11.10 Type 2 diabetes mellitus with ketoacidosis without coma; I26.99 Other pulmonary embolism without acute cor pulmonale; E43 Unspecified severe protein-calorie malnutrition; N39.0 Urinary tract infection, site not specified; G93.40 Encephalopathy, unspecified; Z68.1 Body mass index [BMI] 19.9 or less, adult; M48.50XA Collapsed vertebra, not elsewhere classified, site unspecified, initial encounter for fracture; I82.403 Acute embolism and thrombosis of unspecified deep veins of lower extremity, bilateral; E11.649 Type 2 diabetes mellitus with hypoglycemia without coma; B96.20 Unspecified Escherichia coli [E. coli] as the cause of diseases classified elsewhere; N28.89 Other specified disorders of kidney and ureter; K86.89 Other specified diseases of pancreas; F10.10 Alcohol abuse, uncomplicated; F17.210 Nicotine dependence, cigarettes, uncomplicated; E78.5 Hyperlipidemia, unspecified; I10 Essential (primary) hypertension; E87.6 Hypokalemia; Z79.899 Other long term (current) drug therapy
CPT/HCPCS: 36415; 36600; 70450; 70496; 70498; 71045; 71275; 74177; 76705; 80048; 80053; 80202; 80307; 81001; 82010; 82140; 82375; 82565; 82728; 82805; 82948; 83036; 83050; 83605; 83615; 83690; 83735; 83880; 84100; 84443; 84460; 84484; 85025; 85027; 85610; 85730; 86140; 86301; 87040; 87077; 87086; 87186; 87804; 93005; 93306; 93970; 96361; 96365; 96366; 96367; 96368; 96372; 96375; 96376; 97161; 97165; 97530; 97535; 99291; A9270; C9803; G0378; J0131; J0696; J1335; J1650; J1815; J2060; J3370; J3411; J3475; J3480; J7030; J7040; Q9967; U0003; U0005

== ENCOUNTER 2025-02-20 21:08 | Emergency (ER) | payer OTHER, SELFPAY ==
[2025-02-20] VITALS (12 sets, daily range): BP systolic 119–153; BP diastolic 80–107; PULSE 86–97; RESP 16–24; TEMP 36.4; O2SAT 97–100
--- NOTE | ~2025-02-20 | XR_ITS ---
Examination: XR chest 1V portable Clinical History: dizzy, cough Comparison: 04/24/2021 Technique: Portable AP Findings: Heart size normal. Lungs clear. No acute bony abnormality. IMPRESSION: 1. No acute cardiopulmonary findings given portable technique. Reviewed, dictated and finalized at location R. END CAREGIVER
--- NOTE | 2025-02-20 21:19 | ECG_ITS ---
Test Date: 2025-02-20 21:21:32 Measurements Intervals [place] Rate: 84 P: 61 IA: 158 QRS: 64 QRSD: 85 T: 72 QT: 366 QTc: 434 Interpretive Statements SINUS RHYTHM No previous ECG available for comparison Electronically Signed On 02-21-2025 06:57:38 TEST CENTER MANAGER by Stormy Hearn M.D.
[2025-02-20 21:47] LABS: Hematocrit 41.0 % (42.0-52.0); Hemoglobin 13.5 g/dL (14.0-18.0); Immature Granulocyte Percent A 0.6 % (0-0.5); Lymphocytes Absolute Auto 1.73 K/mm3 (0.9-3.2); Mean Corpuscular HGB Conc 32.9 g/dl (32-36); Mean Corpuscular Hemoglobin 27.7 pg (26-34); Mean Corpuscular Volume 84.0 fl (80-100); Nucleated Red Blood Cells Absolute Auto 0.000 K/mm3 (0.0-0.012); Nucleated Red Blood Cells Perc 0.0 % (0.0-0.2); Platelet Count Result 243 k/mm3 (150-375); Red Blood Count 4.88 M/mm3 (4.6-6.20); White Blood Count 4.7 K/mm3 (4.5-10.0)
[2025-02-20 21:47] LABS: Add Urine Microscopic? NO; Appearance Urine Clear (Clear); Glucose Urine UA 3+ mg/dL (Negative); Leukocyte Esterase Ur Negative LEU/UL (Negative); Nitrate Urine Negative (Negative); Specific Grav Ur 1.024 (1.001-1.035)
[2025-02-20 22:00] LABS: Hemoglobin A1C > 14.0 % (<5.7)
[2025-02-20 22:01] LABS: Alanine Aminotransferase 11 U/L (6-50); Albumin Level 4.7 g/dL (3.5-5.1); Alkaline Phosphatase 125 U/L (38-126); Anion Gap 13 mmol/L (4-12); Aspartate Amino Transferase 20 U/L (17-59); Bilirubin,Total 0.6 mg/dL (0.2-1.3); Blood Urea Nitrogen 17 mg/dL (9-20); Calcium 9.8 mg/dL (8.4-10.2); Carbon Dioxide 25 mmol/L (22-30); Chloride 97 mmol/L (98-107); Estimated CRCL calculation 55 ml/min; Estimated Glomerular Filt Rate > 60; Glucose 559 mg/dL (65-110); Magnesium 1.8 mg/dL (1.6-2.3); Potassium 4.6 mmol/L (3.4-5.0); Sodium 135 mmol/L (137-145); Total Protein 9.8 g/dL (6.3-8.2)
[2025-02-20] MEDS: SODIUM CHLORIDE 0.9% IV 1,000 ML 999 ML IV CONT ×2 (22:31→23:59)
[2025-02-20 22:45] LABS: Beta-Hydroxybutyrate/Acetoace. 0.38 mmol/L (0.02-0.27)
--- NOTE | 2025-02-20 23:25 | ED.RECABL ---
HPI - Recheck/Abnormal Lab/Rx General Chief Complaint: Recheck/Abnormal Lab/Rx Stated Complaint: HIGH BG, DIZZY Time Seen by Provider: 02/20/25 22:23 Source: patient, family and EMS (radio report) Mode of arrival: EMS History of Present Illness HPI narrative: Patient presents with [place] feeling dizzy generally feeling well. Did there is report of blood glucose. it is initially reported that has a history of diabetes is compliant and does Not regularly check his blood sugar. reports a history a cough episode of epistaxis after coughing that resolved. Denies being on anticoagulation. He reports having a primary care physician though the [place] ([employer]). patient does not know what medications he is on. He does not know if he is long-acting and/or short-acting insulin; states he takes whatever insulin his daughter gives him. Last dose unknown. Lives with his daughter. Requesting something to drink. = Patient's daughter does come provides collateral information. She reports that he has coughing. She reports that he takes insulin 1 time per day and believes it is therefore long-acting. The dose does not change and she gives it to him in the morning before she leaves for work. She denies needing any refills. She states the dose has been steady with no changes recently although he has not been to see his primary care provider through the [facility] for a very long time. She is open to either do that or establish with someone else locally. Related Data Home Medications ?Medication ?Instructions ?Recorded ?Confirmed ?Last Taken ?Type acamprosate 333 mg tablet,delayed 333 mg PO TID 04/24/21 04/25/21 Unknown History release diltiazem HCl 120 mg capsule,24 120 mg PO DAILY 04/24/21 04/25/21 Unknown History hr,extended release folic acid 1 mg tablet 1 mg PO DAILY 04/24/21 04/25/21 Unknown History multivitamin,[id number] 1 tablet PO DAILY 04/24/21 04/25/21 Unknown History rosuvastatin 40 mg tablet 40 mg PO QPM 04/24/21 04/25/21 Unknown History spironolactone 25 mg tablet 25 mg PO DAILY 04/24/21 04/25/21 Unknown History thiamine HCl (vitamin B1) 100 mg 100 mg PO DAILY 04/24/21 04/25/21 Unknown History tablet tramadol 50 mg tablet 50 mg PO Q6H PRN Pain 04/24/21 04/25/21 Unknown History Allergies Allergy/AdvReac Type Severity Reaction Status Date / Time No Known Allergies Allergy Verified 04/24/21 16:20 [facility] Past Medical History Medical History Alcohol abuse DM2 (diabetes mellitus, type 2) Hyperlipidemia Hypertension Surgical History Surgical History No pertinent past surgical history Family History Family History Unknown Unknown family medical history Social History Social History Social History: Initially the patient told me that he quit drinking 2 weeks ago however was noted that his last drink was 2 days ago. He does have a history of alcoholism. Even though the patient served in the [employer] he stated that he does not always go to the [facility]. The patient is and has 6 children. The patient worked in transport. Patient continues to smoke half pack a cigarettes a day. It is noted that the patient typically drinks a pt of liquor a day. The patient lives with his daughter Melva who is the durable power tax attorney for healthcare. Code status full code Alcohol intake: current Drinks per week: 10 Alcohol use details: pint a day Substance use: current Substance use type: marijuana Spiritual care concerns: No Exam Narrative: GENERAL: Thin but Well-appearing, well-nourished, and in no acute distress. HEAD: Normocephalic, atraumatic. EYES: Non injected, non icteric ENT: Nares clear, no rhinorrhea . Gross auditory acuity intact. NECK: Supple. No meningismus. CHEST: Mild tachypnea but Speaking in full sentences. No respiratory distress. Lungs clear bilaterally without wheezes or crackles. No retractions or accessory muscle usage. HEART: Regular rate and rhythm. . ABDOMEN: Soft, nondistended. Not peritoneal EXTREMITIES: Normal range of motion. SKIN: Warm, dry, no rash. NEURO: No focal deficits. Alert and oriented. Answering questions though not a thorough historian. Following commands. Normal speech without aphasia or dysarthria. PSYCH: Congruent mood and affect. Course Vital Signs Vital signs: Vital Signs Temperature 97.6 F 02/20/25 21:07 Pulse Rate 89 02/20/25 21:07 Respiratory Rate 23 H 02/20/25 21:07 Blood Pressure 153/103 H 02/20/25 21:07 Pulse Oximetry 99 02/20/25 21:07 Temperature 97.6 F 02/20/25 21:07 Pulse Rate 81 02/21/25 01:30 Respiratory Rate 24 H 02/21/25 01:30 Blood Pressure 147/97 H 02/21/25 01:30 Pulse Oximetry 100 02/21/25 00:00 MDM - Recheck/Abnormal Lab/Rx MDM Narrative Medical decision making narrative: patient presents dizziness and feeling unwell. Found to have a blood sugar that was elevated. Reportedly with diabetes medication. He reports having a cough. He does not know his medications. In the emergency department and he is afebrile with vital signs notable for hypertension and mild tachypnea. Blood pressure resolves repeat without interval intervention. POC >500mg/dL. He has hyperglycemia a very mild anion gap and no acidosis. 1 L IV fluids initially given. Sodium corrects to 142/146 in the setting of hyperglycemia. Normocytic anemia actually improved from previous, possibly due to a hemoconcentration. 2nd L IV fluids ordered. HA1c >14%, indicating very poor control . Glucosuria in the urine but otherwise w/o signs of infection. Beta hydroxybutyrate only mildly elevated. Attempted to contact patient's emergency contact (daughter?) but the number is out of service. No insulin orders are found within patient's medication list. Daughter arrives and she notes that he is on insulin once/day. [facility]'t [facility] in [facility] system. Denies needing refills or being out though does note that he has been on the same regimen for awhile with no changes and it has been awhile since he saw PCP. Thinks me might need to see someone other than through the [facility]. Repeat POC 344mg/dL. Viral swab negative. Provided Tessalon perle and Rx for the same. Provided contact info for a local PCP. Otherwise stable for discharge. Differential Diagnosis Differential diagnosis: Likely other ( hyperglycemia, HHS, DKA; medication noncompliance; subtherapeutic medication regimen; acute viral syndrome, pneumonia; bronchitis) Lab Data Attestation: I reviewed the patient's lab results. 02/20/25 21:32 02/20/25 21:32 Labs: Lab Results 02/20/25 02/20/25 02/20/25 Range/Units 21:22 21:32 21:34 WBC 4.7 (4.5-10.0) K/mm3 RBC 4.88 (4.6-6.20) M/mm3 Hgb 13.5 L D (14.0-18.0) g/dL Hct 41.0 L (42.0-52.0) % MCV 84.0 (80-100) fl MCH 27.7 (26-34) pg MCHC 32.9 (32-36) g/dl RDW 14.2 (11.5-14.5) % Plt Count 243 (150-375) k/mm3 MPV 9.6 (7.4-10.4) fl Immature Gran % (Auto) 0.6 H (0-0.5) % Neut % (Auto) 51.5 (45.5-73.1) % Lymph % (Auto) 37.0 (18.3-44.2) % Iron % (Auto) 8.4 (2.6-8.5) % Eos % (Auto) 2.1 (0-4.4) % Baso % (Auto) 0.4 (0.2-1.2) % Lymph # (Auto) 1.73 (0.9-3.2) K/mm3 Iron # (Auto) 0.4 (0.1-0.6) K/mm3 Eos # (Auto) 0.1 (0-0.3) K/mm3 Baso # (Auto) 0.0 (0.0-0.1) K/mm3 Abs Immat Gran (auto) 0.03 (0.00-0.031) K/mm3 Absolute Neuts (auto) 2.4 (1.3-6.7) K/mm3 Absolute Nucleated RBC 0.000 (0.0-0.012) K/mm3 Nucleated RBC % 0.0 (0.0-0.2) % Sodium 135 L (137-145) mmol/L Potassium 4.6 (3.4-5.0) mmol/L Chloride 97 L (98-107) mmol/L Carbon Dioxide 25 (22-30) mmol/L Anion Gap 13 H (4-12) mmol/L BUN 17 D (9-20) mg/dL Creatinine 1.01 (0.7-1.3) mg/dL Estim Creat Clear Calc 55 ml/min Estimated GFR > 60 (59 - ) Glucose 559 H* (65-110) mg/dL POC Capillary Glucose > 500 H* (65-105) mg/dl Hemoglobin A1c > 14.0 H (<5.7) % Calcium 9.8 (8.4-10.2) mg/dL Phosphorus 4.2 (2.5-4.5) mg/dL Magnesium 1.8 (1.6-2.3) mg/dL Total Bilirubin 0.6 (0.2-1.3) mg/dL AST 20 (17-59) U/L ALT 11 (6-50) U/L Alkaline Phosphatase 125 (38-126) U/L Total Protein 9.8 H (6.3-8.2) g/dL Albumin 4.7 (3.5-5.1) g/dL Beta-Hydroxybutyrate/Acetoacetate 0.38 H (0.02-0.27) mmol/L Urine Color Yellow (Yellow) Urine Appearance Clear (Clear) Urine pH 6.5 (5.0-9.0) Ur Specific [place] 1.024 (1.001-1.035) Urine Protein Negative (Negative) mg/dL Urine Glucose (UA) 3+ H (Negative) mg/dL Urine Ketones Negative (Negative) mg/dL Ur Blood (Man) Negative (Negative) Urine Nitrate Negative (Negative) Urine Bilirubin Negative (Negative) Urine Urobilinogen 0.2 (<2.0) mg/dL Leukocyte Esterase Rfl Negative (Negative) TREVOR/UL Influenza A (RT-PCR) (Negative) Influenza B (RT-PCR) (Negative) RSV (RT-PCR) (Negative) SARS-CoV-2 RNA (RT-PCR) (Negative) 02/20/25 02/21/25 02/21/25 Range/Units 23:20 00:12 01:14 WBC (4.5-10.0) K/mm3 RBC (4.6-6.20) M/mm3 Hgb (14.0-18.0) g/dL Hct (42.0-52.0) % MCV (80-100) fl MCH (26-34) pg MCHC (32-36) g/dl RDW (11.5-14.5) % Plt Count (150-375) k/mm3 MPV (7.4-10.4) fl Immature Gran % (Auto) (0-0.5) % Neut % (Auto) (45.5-73.1) % Lymph % (Auto) (18.3-44.2) % Iron % (Auto) (2.6-8.5) % Eos % (Auto) (0-4.4) % Baso % (Auto) (0.2-1.2) % Lymph # (Auto) (0.9-3.2) K/mm3 Iron # (Auto) (0.1-0.6) K/mm3 Eos # (Auto) (0-0.3) K/mm3 Baso # (Auto) (0.0-0.1) K/mm3 Abs Immat Gran (auto) (0.00-0.031) K/mm3 Absolute Neuts (auto) (1.3-6.7) K/mm3 Absolute Nucleated RBC (0.0-0.012) K/mm3 Nucleated RBC % (0.0-0.2) % Sodium (137-145) mmol/L Potassium (3.4-5.0) mmol/L Chloride (98-107) mmol/L Carbon Dioxide (22-30) mmol/L Anion Gap (4-12) mmol/L BUN (9-20) mg/dL Creatinine (0.7-1.3) mg/dL Estim Creat Clear Calc ml/min Estimated GFR (59 - ) Glucose (65-110) mg/dL POC Capillary Glucose > 500 H* 344 H (65-105) mg/dl Hemoglobin A1c (<5.7) % Calcium (8.4-10.2) mg/dL Phosphorus (2.5-4.5) mg/dL Magnesium (1.6-2.3) mg/dL Total Bilirubin (0.2-1.3) mg/dL AST (17-59) U/L ALT (6-50) U/L Alkaline Phosphatase (38-126) U/L Total Protein (6.3-8.2) g/dL Albumin (3.5-5.1) g/dL Beta-Hydroxybutyrate/Acetoacetate (0.02-0.27) mmol/L Urine Color (Yellow) Urine Appearance (Clear) Urine pH (5.0-9.0) Ur Specific [place] (1.001-1.035) Urine Protein (Negative) mg/dL Urine Glucose (UA) (Negative) mg/dL Urine Ketones (Negative) mg/dL Ur Blood (Man) (Negative) Urine Nitrate (Negative) Urine Bilirubin (Negative) Urine Urobilinogen (<2.0) mg/dL Leukocyte Esterase Rfl (Negative) TREVOR/UL Influenza A (RT-PCR) Negative (Negative) Influenza B (RT-PCR) Negative (Negative) RSV (RT-PCR) Negative (Negative) SARS-CoV-2 RNA (RT-PCR) Negative (Negative) Imaging Data Attestation: I personally reviewed and interpreted this imaging study as follows: My impression: CXR negative for acute process on my independent interpretation ECG Data EKG #1: Attestation: I personally reviewed and interpreted this ECG as follows: ECG completion date: 02/20/25 ECG completion time: 21:21 Interpretation: Normal sinus rhythm at a rate of 84 beats per minute. UT interval 158. QRS 85. QT/QTC 366/434. Good R-wave progression across the precordial leads. No T-wave inversion. Normal axis. Normal ECG. Discharge Plan Discharge Clinical Impression: Hyperglycemia due to type 2 diabetes mellitus, Hemoglobin A1C greater than 9%, indicating poor diabetic control, Glucosuria, Bronchitis Patient Disposition: Home Condition: Stable Instructions: Antibiotic Form, Acute Bronchitis (ED), Managing Diabetes During Sick Days (ED), Diabetic Hyperglycemia (ED) Additional Instructions: Continue taking your medications as prescribed, including your insulin. Follow-up either with your primary care physician through the [place] or, the name of a doctor is listed below; your insulin regimen and/or alternative diabetic medications may need to be added. The benzonatate/Tessalon Perles may help with the cough. You tested negative for COVID, influenza a, influenza B, and RSV. Return to the emergency department with any new or worsening symptoms. Patient Language: Lithuanian Prescriptions: New benzonatate 100 mg capsule 100 mg PO BID PRN (Reason: cough) Qty: 20 0RF No Action acamprosate 333 mg Tablet,Delayed Release (Dr/Ec) 333 mg PO TID diltiazem HCl 120 mg Capsule,Extended Release 24 Hr 120 mg PO DAILY folic acid 1 mg Tablet 1 mg PO DAILY multivitamin,[id number] Tablet 1 tablet PO DAILY thiamine HCl (vitamin B1) 100 mg Tablet 100 mg PO DAILY tramadol 50 mg Tablet 50 mg PO Q6H PRN (Reason: Pain) spironolactone 25 mg Tablet 25 mg PO DAILY rosuvastatin 40 mg Tablet 40 mg PO QPM albuterol sulfate [Proventil HFA] 90 mcg/actuation Hfa Aerosol Inhaler 2 puff inhalation Q6HRT PRN (Reason: Shortness Of Breath) Qty: 1 0RF Eliquis 5 mg tablet 5 mg PO BID Qty: 60 0RF aspirin 81 mg capsule 81 mg PO DAILY Qty: 30 0RF metoprolol tartrate 25 mg tablet 12.5 mg PO BID Qty: 60 0RF Follow-up/Referrals: Palmer Feliz MD [Physician, Family Practice] PHYSICIAN,[employer]ER [Primary Care Provider, Internal Medicine] Stand Alone Forms: Work/School Release IP Time of Disposition: 01:19
[2025-02-21] VITALS: BP 157/99; PULSE 84; RESP 19; O2SAT 100
[2025-02-21 00:16] VITALS: BP 151/104; PULSE 91; RESP 21
[2025-02-21 00:45] VITALS: BP 148/93; PULSE 80; RESP 18
[2025-02-21 01:00] VITALS: BP 153/100; PULSE 84; RESP 29
[2025-02-21] MEDS: BENZONATATE 100 MG CAPSULE PO (01:05)
[2025-02-21 01:11] LABS: Influenza A QL RT-PCR Negative (Negative); Influenza B QL RT-PCR Negative (Negative); RSV RNA, RT-PCR Negative (Negative); SARS-CoV-2 RNA PCR Negative (Negative)
[2025-02-21 01:15] VITALS: BP 143/94; RESP 21
[2025-02-21 01:30] VITALS: BP 147/97; PULSE 81; RESP 24
== END 2025-02-21 01:55 | disposition home or self-care (01) ==
PROVIDERS: Physician Assistant; Emergency Provider Student in an Organized Health Care Education/Training Program
DX: E11.65 Type 2 diabetes mellitus with hyperglycemia (principal); J40 Bronchitis, not specified as acute or chronic; R81 Glycosuria; Z20.822 Contact with and (suspected) exposure to COVID-19; E78.5 Hyperlipidemia, unspecified; I10 Essential (primary) hypertension; F17.210 Nicotine dependence, cigarettes, uncomplicated; Z79.82 Long term (current) use of aspirin; Z79.01 Long term (current) use of anticoagulants; Z79.4 Long term (current) use of insulin
CPT/HCPCS: 36415; 71045; 80053; 81003; 82010; 82948; 83036; 83735; 84100; 85025; 87637; 93005; 96360; 96361; 99283; A9270; J7030